=== PATIENT | male | born 1975 | race Caucasian/White ===

== ENCOUNTER → 2020-02-18 15:47 | Outpatient (CLI) | payer MEDICAID, SELFPAY ==
[2020-02-18 16:13] LABS: Basophils # 0.1 K/mm3 (0-0.2); Basophils % 0.8 % (0.1-2.0); Eosinophils # 0.1 K/mm3 (0.0-0.4); Eosinophils % 1.6 % (0.1-12.0); Hematocrit 50.1 % (42.0-52.0); Hemoglobin 16.8 g/dL (14.1-18.0); Lymphocytes # 2.2 K/mm3 (0.7-4.5); Mean Corpuscular HGB Conc 33.5 g/dL (31.8-35.4); Mean Corpuscular Hemoglobin 30.7 pg (27.0-31.2); Mean Corpuscular Volume 91.7 fl (80-94); Mean Platelet Volume 7.5 fl (7.4-10.4); Monocytes # 0.5 K/mm3 (0.1-1.0); Monocytes % 7.2 % (1.7-9.3); Neutrophils # 4.5 K/mm3 (1.8-7.8); Neutrophils % 61.3 % (37.0-80.0); Platelet Count 329 K/mm3 (142-424); Red Blood Count 5.46 M/mm3 (4.60-6.20); Red Cell Distribution Width 13.5 % (11.5-17.5); White Blood Count 7.4 K/mm3 (4.8-10.8)
[2020-02-18 16:27] LABS: Alanine Aminotransferase 23 U/L (12-78); Albumin Level 4.5 g/dl (3.5-5.0); Albumin/Globulin Ratio 1.4 (1.1-1.8); Alkaline Phosphatase 105 U/L (38-126); Anion Gap 15.7 mEq/L (5-15); Aspartate Amino Transferase 37 U/L (17-59); Bilirubin,Total 0.4 mg/dl (0.2-1.3); Blood Urea Nitrogen 11 mg/dl (9-20); Calcium 9.5 mg/dl (8.4-10.2); Carbon Dioxide 23 mmol/L (22.0-30.0); Chloride 106 mmol/L (98-107); Chol/HDL Ratio 6.8 (1-3.5); Cholesterol 197 mg/dl (140-200); Estimated Glomerular Filt Rate 104 ml/min (>60); GFR (African American) 126 ML/MIN (>60); Globulin 3.3 g/dL (1.3-3.2); Glucose 112 mg/dl (74-100); HDL Cholesterol 29 mg/dl (40-60); Potassium 4.7 mmoL/L (3.5-5.1); Sodium 140 mmol/L (136-145); Total Protein,Serum 7.8 g/dl (6.3-8.2); Triglycerides 216 mg/dl (30-150); VLDL Cholesterol 43 mg/dL (0-40)
[2020-02-18 16:37] LABS: Direct LDL Cholesterol 131.27 mg/dL (100-129)
[2020-02-18 16:44] LABS: T4 (Thyroxine) 9.8 ug/dl (5.53-11.0)
[2020-02-18 16:58] LABS: Thyroid Stimulating Hormone 2.05 uIU/mL (0.465-4.68)
== END ==
PROVIDERS: Visit Provider Nurse Practitioner Family
DX: Z00.00 Encounter for general adult medical examination without abnormal findings (principal); R07.89 Other chest pain; S46.912A Strain of unspecified muscle, fascia and tendon at shoulder and upper arm level, left arm, initial encounter; E78.5 Hyperlipidemia, unspecified; Z79.899 Other long term (current) drug therapy
CPT/HCPCS: 80053; 80061; 84436; 84443; 85025

== ENCOUNTER → 2020-03-09 09:45 | Outpatient (CLI) | payer MEDICAID, SELFPAY ==
--- NOTE | 2020-03-09 | CA_ITS ---
APPROVED REPORT Exam: Pharmacologic Technologist: Deidra Cleaning Ht: 6 ft 3 in Wt: 292 lbs BSA: 2.58 m2 HR: 52 bpm BP: 115/74 mmHg Indications: Chest pain Medical History Medications: Aspirin,,,,, Atorvastatin,,,,, Stress Test Details Test: LEXISCAN HR Resting HR: 60 bpm Max Heart Rate (APMHR): 174 bpm Max HR Achieved: 106 bpm Target HR (85% APMHR): 147 bpm % of APMHR: 60 Recovery HR: 67 bpm BP Resting BP: 115.0/74.0 mmHg Max BP: 141.0/72.0 mmHg Recovery BP: 122.0/71.0 mmHg ECG Clinical Exercise duration: 04:04 min Highest Stage Achieved: Exercise capacity: 1.0 METs Stress ECG Conclusion Resting EKG: Sinus bradycardia, otherwise normal. Symptoms: Brief shortness of air, malaise, mild nausea. No chest pain. Arrhythmias/Ectopy: Occasional PVC and PAC ST-T Changes: No significant changes. Conclusion: Unremarkable Lexiscan stress. Myoview images reported separately. Test Summary RECOVERY 03:33 . . 75 . 122/ 71 . . REST 04:22 . . 60 . 115/ 74 . . Stage 1 . . . . . . . Myoview Injected Stage 1 01:00 . . 101 . . . . Stage 2 01:00 . . 92 . 137/ 73 . . Stage 3 01:00 . . 83 . 128/ 77 . . Stage 4 01:00 . . 82 . . . . Stage 4 01:04 . . 82 . 141/ 72 . Stop exercise at 04:04 RECOVERY 01:00 . . 74 . 131/ 71 . . RECOVERY 02:00 . . 87 . 131/ 71 . . RECOVERY 03:00 . . 76 . 131/ 71 . . RECOVERY 03:33 . . 75 . 122/ 71 . . Electronically signed by : Sanford Link, 03/10/2020 05:37:24
--- NOTE | 2020-03-09 09:46 | CA_ITS ---
APPROVED REPORT EXAM: Comprehensive 2D, Doppler, and color-flow Echocardiogram Jailer/Training Officer: Xiomara Zafar RDCS Ht: 6 ft 3 in Wt: 292lbs BSA: 2.58 BP: 133/79 mmHg Indications: CP SMOKER HTN HLP SALINAS 2D Dimensions LVOT 2.14 cm (M/F) 1.5-2.5 M-Mode Dimensions RVDd 2.05 cm (0.9-2.6) LA Diam 3.27 cm (1.9-4.0) LVDd 5.98 cm (3.5-5.7) Ao Diam 3.39 cm (2.0-3.7) LVDs 4.10 cm (3.5-5.7) IVSd 0.88 cm (0.6-1.1) PWd 0.84 cm (0.6-1.1) EF (Teich) 58.50% FS 31.40% EDV (Teich) 178.60 mL ESV (Teich) 74.20 mL LV Diastology E Decel Time 193.00 (160-240 msec) E/A Ratio 1.5 MED E' 8.30 (< 7 cm/sec) E'/MED E' Ratio 10.20 (>14) LAT E' 13.60 (<10 cm/sec) E/LAT E' Ratio 6.23 (>14) Mitral Valve MV E Max Jose. 85.00 (40-130 cm/s) MV A Velocity 57.00 (40-130 cm/s) E/A Ratio 1.48 MV Decel. Time 193.00 (160-240 ms) MV PHT 57.00 ms Left Ventricle Left atrium is mildly enlarged, left ventricle is normal size, mild concentric left ventricular hypertrophy, visually estimated ejection fraction 50%, there is mild apical wall hypokinesis. Diastolic parameters are inconclusive. Right Ventricle Right atrium is normal size, right ventricle is mildly enlarged with normal contractility. Aortic Valve Aortic valve is minimally thickened and fibrosed, there is no aortic stenosis or aortic insufficiency. Mitral Valve Mitral valve is grossly normal, there is mild mitral regurgitation. Tricuspid Valve Tricuspid valve is grossly normal, there is mild tricuspid regurgitation, tricuspid regurgitation jet velocity is inadequate for calculation of the right ventricular systolic pressure. Pulmonic Valve Pulmonic valve is poorly visualized. Great Vessels Aortic root is normal size. Pericardium No significant pericardial effusion noted. Conclusion 1. Mildly enlarged left atrium, normal left ventricular size, mild concentric left ventricular hypertrophy, visually estimated ejection fraction 50% with segmental wall motion abnormality described above, diastolic parameters are inconclusive. 2. Mildly enlarged right ventricle with normal contractility. 3. Mild mitral and tricuspid regurgitation. 4. No significant pericardial effusion noted. Electronically signed by : Sanford Link, 03/10/2020 06:31:23
--- NOTE | 2020-03-09 10:10 | NM_ITS ---
APPROVED REPORT Exam: Nuclear Stress Test Indication: chest pain Patient Location: Outpatient Stress Tech: Deidra Cleaning ID Tech:Geni Peters ILIANAKait RT(R)(N) Ht: 6 ft 3 in Wt: 280 lbs HR: 52 bpm BP: 115/74 mmHg BSA: 2.53 m2 BMI: 34.9 History: chest pain Procedure: Patient received a 0.4 mg of intravenous Lexiscan, resting heart rate 52 bpm, resting blood pressure 115/74 mmHg, with Lexiscan maximum heart rate achived was 105 bpm which is Less than 85 % of the maximum predicted heart rate and blood pressure was 137/73 mmHg. With Lexiscan, patient denied any complaint of chest pain. Electrocardiogram Resting electrocardiogram showed is sinus rhythm nonspecific ST-T changes, with Lexiscan there is less than 1.[address] segment depression noted from the baseline EKG. The EKG portion of the Lexiscan Myoview is nondiagnostic. Cardiac Stress and Resting SPECT Images: Cardiac Stress and Resting SPECT images were obtained using technetium 99m Myoview 32.0 mCi stress and 10.81 mCi at rest. Gated SPECT for analysis of segmental wall motion and calculation of the ejection fraction also done. Cardiac stress and resting SPECT images show mild decrease tracer activity in the apex which improves on the resting images suggestive of reversible ischemia, computer derived ejection fraction is 48% with mild apical hypokinesis, right ventricle is mildly enlarged with normal contractility. Conclusion: 1. The EKG portion of the Lexiscan Myoview is nondiagnostic. 2. Scintigraphic evidence of mild reversible ischemia involving the apex, computer derived ejection fraction 48% with mild apical hypokinesis, right ventricle is mildly enlarged with normal contractility. 3. Abnormal Lexiscan Myoview study. Electronically signed by : Sanford Link, 03/10/2020 05:59:35
--- NOTE | 2020-03-09 12:43 | HMH.ITSHM ---
Current Home Medications as stated by this patient Jairo Aiken or commercial representative. []ASA ATORVASTATIN
== END ==
PROVIDERS: PCP Nurse Practitioner Family; Visit Provider Nurse Practitioner Family
DX: R07.89 Other chest pain (principal); R06.00 Dyspnea, unspecified; R94.31 Abnormal electrocardiogram [ECG] [EKG]; E78.5 Hyperlipidemia, unspecified; K21.9 Gastro-esophageal reflux disease without esophagitis; R20.0 Anesthesia of skin; F17.200 Nicotine dependence, unspecified, uncomplicated
CPT/HCPCS: 78452; 93017; 93306; A9502; J2785

== ENCOUNTER → 2020-03-22 09:55 | Outpatient (CLI) | payer MEDICAID, SELFPAY ==
[2020-03-22 10:37] LABS: Basophils # 0.1 K/mm3 (0-0.2); Basophils % 0.7 % (0.1-2.0); Eosinophils # 0.1 K/mm3 (0.0-0.4); Eosinophils % 1.6 % (0.1-12.0); Hemoglobin 16.3 g/dL (14.1-18.0); Lymphocytes # 2.2 K/mm3 (0.7-4.5); Mean Corpuscular HGB Conc 34.7 g/dL (31.8-35.4); Mean Corpuscular Hemoglobin 30.7 pg (27.0-31.2); Mean Corpuscular Volume 88.5 fl (80-94); Mean Platelet Volume 7.2 fl (7.4-10.4); Monocytes # 0.4 K/mm3 (0.1-1.0); Monocytes % 6.4 % (1.7-9.3); Neutrophils % 58.4 % (37.0-80.0); Platelet Count 310 K/mm3 (142-424); Red Blood Count 5.32 M/mm3 (4.60-6.20); Red Cell Distribution Width 13.9 % (11.5-17.5); White Blood Count 6.8 K/mm3 (4.8-10.8)
[2020-03-22 11:47] LABS: Anion Gap 13.5 mEq/L (5-15); Blood Urea Nitrogen 12 mg/dl (9-20); Calcium 9.2 mg/dl (8.4-10.2); Carbon Dioxide 25 mmol/L (22.0-30.0); Chloride 106 mmol/L (98-107); Estimated Glomerular Filt Rate 91 ml/min (>60); GFR (African American) 110 ML/MIN (>60); Glucose 116 mg/dl (74-100); Potassium 4.5 mmoL/L (3.5-5.1); Sodium 140 mmol/L (136-145)
[2020-03-22 14:28] LABS: Coronavirus 19 IgG Antibody Negative (Negative); Coronavirus 19 IgM Antibody Negative (Negative)
== END ==
PROVIDERS: PCP Nurse Practitioner Family; Visit Provider Nurse Practitioner Family
DX: Z01.818 Encounter for other preprocedural examination (principal); G47.30 Sleep apnea, unspecified; R40.0 Somnolence; R06.83 Snoring; G47.33 Obstructive sleep apnea (adult) (pediatric)
CPT/HCPCS: 36415; 80048; 85025; 86328; 95810

== ENCOUNTER 2020-03-24 08:16 | Day surgery (SDC) | payer MEDICAID, SELFPAY ==
[2020-03-24] VITALS (15 sets, daily range): BP systolic 122–177; BP diastolic 72–102; PULSE 54–88; RESP 12–20; TEMP 36.4–36.7; O2SAT 94–100; BMI 36.3
--- NOTE | 2020-03-24 07:24 | IR_ITS ---
APPROVED REPORT Patient Location: Outpatient PROCEDURES Left heart catheterization Left ventriculogram Selective coronary angiogram Drug-eluting stent deployment to the proximal mid LAD in a contiguous manner INDICATION Coronary artery disease, Reduced ejection fraction with apical ischemia, abnormal Myoview Informed consent was obtained prior to the procedure. COMPLICATIONS NONE Estimated Blood Loss: LESS THAN 10 ML TECHNIQUE One percent lidocaine used to anesthetize the right anterior aspect of the wrist. The right radial artery was accessed via the Seldinger technique. A 6 Vietnamese sheath was placed in the right radial artery. 2.5 mg of verapamil, 800 mcg of nitroglycerin, 1mg Lidocaine and 5000 U Heparin were given through the arterial sheath. The trap catheter was also used to perform left heart catheterization, left ventriculogram and selective coronary angiogram. At the end of the procedure therapeutic heparin was administered giving a therapeutic ACT. And I Amparo left guide catheter was placed in the left main artery and a Choice PT extra-support wire was placed distally. A 3.5 x 38 mm resolute armando stent was deployed at 18 myriam reducing the stenosis. A 3.5 x 12 mm noncompliant balloon was then placed in the distal aspect of the stent and dilated at 24 myriam to provide better stent apposition. At the end of the procedure there is excellent stent apposition however there was poststenotic dilatation distal to the treated lesion and the stent was not further distended due to the positive compliance and anticipated recoil of the poststenotic dilatation. After achieving excellent angiographic results the apparatus was removed the sheath was removed good hemostasis was achieved using TR banding patient was transferred to the postop holding area in stable condition ANGIOGRAPHIC RESULTS The left main artery Normal The left anterior descending artery Has proximal 10% stenosis followed by a concentric 80% stenosis in the mid segment. Poststenotic dilatation is present distal to the stenosis. The circumflex artery Is a nondominant yet still large vessel with an ostial 20% stenosis and proximal 20% stenosis The right coronary artery Is a dominant vessel and has a proximal 30 to 40% concentric stenosis followed by 30% stenosis in the posterior descending artery The SUTTON ventriculogram reveals Normal 65% The left ventricular end-diastolic pressure 10 mmHg IMPRESSION Severe stenosis involving the mid LAD Successful stenting of the proximal through mid LAD with 1 drug-eluting stent reducing the stenosis to 0% Mild to moderate disease in the proximal nondominant yet large circumflex artery Moderate disease in the proximal dominant right coronary artery and proximal posterior descending artery Normal ejection fraction Normal left ventricular end-diastolic pressure PLAN 1. Dual antiplatelet therapy 2. Immediate cessation and avoidance of tobacco products 3. LDL less than 55 4. Cardiac rehabilitation 5. Add bisoprolol 5 mg daily combined with Altace 2.5 daily 6. Aggressive risk factor modification Electronically signed by : Ángel Goldberg, 03/24/2020 11:31:16
[2020-03-24 11:34] LABS: CATHL Activated Clotting Time 275 SEC (74-125)
--- NOTE | 2020-03-24 13:40 | HMH.PHACLD ---
Jairo Aiken has received discharge medication counseling on the following medications: PATIENT IS CURRENTLY ATORVASTIN 20 MG HS AND ASPIRIN EC 81 MG DAILY. MD ADDING BRILINTA 90 MG BID, ALTACE 2.5 MG DAILY, AND BISOPROLOL 5 MG DAILY.
== END 2020-03-24 14:35 ==
LOC: CATHLAB 08:17
PROVIDERS: PCP Nurse Practitioner Family; Visit Provider Internal Medicine
DX: R93.1 Abnormal findings on diagnostic imaging of heart and coronary circulation (principal); E78.2 Mixed hyperlipidemia; I42.9 Cardiomyopathy, unspecified; K21.9 Gastro-esophageal reflux disease without esophagitis; R06.00 Dyspnea, unspecified; R94.39 Abnormal result of other cardiovascular function study; I25.118 Atherosclerotic heart disease of native coronary artery with other forms of angina pectoris; Z72.0 Tobacco use; E78.5 Hyperlipidemia, unspecified
CPT/HCPCS: 85347; 92928; 93458; 99152; C1725; C1769; C1876; C9600; J1644; Q9967

== ENCOUNTER 2020-04-20 14:08 | Outpatient (RCR) | payer MEDICAID, SELFPAY | END 2020-07-07 13:54 | disposition home or self-care (01) | LOC: PT 14:08 | PROVIDERS: Visit Provider Nurse Practitioner Family | DX: I25.10 Atherosclerotic heart disease of native coronary artery without angina pectoris (principal); R06.00 Dyspnea, unspecified | CPT/HCPCS: 93798 ==

== ENCOUNTER 2020-08-15 19:50 | Observation (INO) | payer MEDICAID, SELFPAY ==
[2020-08-15] VITALS (10 sets, daily range): BP systolic 107–148; BP diastolic 47–90; PULSE 50–76; RESP 16–22; TEMP 36.5–37; O2SAT 95–98; BMI 34.9; BMI 36.9
--- NOTE | 2020-08-15 19:52 | XR_ITS ---
PROCEDURE: XR CHEST 2V CLINICAL HISTORY: chest pain w/ dsypnea COMPARISON: No exams were available for comparison FINDINGS: The cardiomediastinal silhouette and pulmonary vascularity are within normal limits. Small nodular opacity right midlung overlying the 4th rib anteriorly and may be due to summation artifact from overlying vessels. Follow-up may confirm and to exclude developing nodule.. Degenerative changes thoracic spine with increased density in the left paraspinal region at T8-T9 and may be due to overlying osteophyte. IMPRESSION: No acute finding. Possible small right upper lobe nodule versus summation density. Follow-up may confirm stability. Dictated by: Schuyler Becker MD 08/16/2020 05:36 Schuyler Becker MD in [facility] 08/16/2020 05:36
--- NOTE | 2020-08-15 20:00 | ECG_ITS ---
APPROVED REPORT Exam: Resting ECG HR:63 bpm ECG Measurements Heart Rate 63 AXES KS 148 P 15 QRSd 82 QRS 25 QT 402 T 29 QTc 411 Conclusion Normal sinus rhythm Normal ECG Electronically signed by : Edgar Joe, 08/16/2020 06:34:04
--- NOTE | 2020-08-15 20:04 | HMH.EDGENADL ---
ED Disposition Clinical Impression: Chest pain Qualifiers: Chest pain type: unspecified Qualified Code(s): R07.9 - Chest pain, unspecified Disposition: Admitted as Observation Condition on Discharge: Good Referrals: Provider,Referral, [Referring] - - Critical Care Critical Care Time: No Attestation: On 08/15/20, the high probability of a clinically significant, sudden or life threatening deterioration of the following system(s) required my full and direct attention, intervention and personal management. The time I documented below is in addition to time spent performing reported procedures but includes the following listed in this critical care notation. Medical Decision Making - Medical Records Medical records reviewed: Yes: I reviewed the patient's medical records. MR Comment: Reviewed cardiac cath report from March 2020, see below - Paul Inquiry Pt receiving controlled substance: No Vital Signs: 08/15/20 19:50 Temperature 98.6 F Temperature Source Oral Pulse Rate [Apical] 60 Respiratory Rate 22 Blood Pressure [Right Arm] 148/83 H Blood Pressure Mean [Right Arm] 104 Blood Pressure Source [Right Arm] Automatic Cuff Blood Pressure Position [Right Arm] Supine 02 Sat by Pulse Oximetry 98 Oxygen Delivery Method Room Air - Lab Data Lab Results 08/15/20 19:55: WBC 9.9, RBC 5.11, Hgb 15.0, Hct 45.3, MCV 88.6, MCH 29.4, MCHC 33.1, RDW 13.2, Plt Count 297, MPV 6.9 L, Neut % (Auto) 54.7, Lymph % (Auto) 36.2, Ceiba % (Auto) 6.5, Eos % (Auto) 1.8, Baso % (Auto) 0.8, Neut # (Auto) 5.4, Lymph # (Auto) 3.6, Ceiba # (Auto) 0.7, Eos # (Auto) 0.2, Baso # (Auto) 0.1 08/15/20 19:55: Sodium 140, Potassium 4.3, Chloride 109 H, Carbon Dioxide 22, Anion Gap 13.3, BUN 16, Creatinine 0.80, Estimated Creat Clear 207, Estimated GFR 104, Est GFR ( Amer) 126, Glucose 105 H, Calcium 9.5, Troponin I < 0.01 Result diagrams: 08/15/20 19:55 08/15/20 19:55 Orders (Tests/Meds): ORDERS Category Date Time Status CXR 2 view (NOT portable) [XR chest 2V] Stat Exams 08/15/20 19:52 Taken Troponin I Q3H Lab 08/15/20 23:00 Ordered Troponin I Q3H Lab 08/16/20 02:00 Ordered - Radiology Data #1 Image(s): Chest Image Reviewed: Yes I reviewed the patient's radiology image Preliminary Findings: Normal/NAD - ECG Data Tracing #1 EKG interpreted by Khai Fletcher MD: Rhythm: sinus Rate: 63 [place]: normal Ectopy: none Conduction: normal ST Segment Changes: none T Wave Changes: none Q Waves: none No evidence of acute ischemia or injury Normal electrocardiogram - Physician Consults Physician Consulted: Ashlyn Time: 20:43 Reason -: Cardiology Eval/Care Comment/Response: Recommends admission Additional Consult: Fransisco Time: 20:55 Reason -: Admission Comment/Response: Agrees to admit the patient to the hospital. We discussed the patient's clinical information, including history, exam, laboratory and radiology results and ED course. Per hospital procedure, I will write temporary bridge inpatient orders on the patient. - TJ Score for Non-Stemi Age of Patient: 40-49 years old Heart Rate: 50-69 bpm Systolic Blood Pressure: 140-159 mmHg Serum Creatinine: 0.80-1.19 mg/dl CHF Killip Class: I-No CHF Other Risk Factors: None Non-Stemi Risk Score: 59 Medical Decision Narrative: PROCEDURES Left heart catheterization Left ventriculogram Selective coronary angiogram Drug-eluting stent deployment to the proximal mid LAD in a contiguous manner INDICATION Coronary artery disease, Reduced ejection fraction with apical ischemia, abnormal Myoview Informed consent was obtained prior to the procedure. COMPLICATIONS NONE Estimated Blood Loss: LESS THAN 10 ML TECHNIQUE One percent lidocaine used to anesthetize the right anterior aspect of the wrist. The right radial artery was accessed via the Seldinger technique. A 6 Maori sheath was placed in the right radial artery. 2.5 mg of verapa
[2020-08-15 20:13] LABS: Chloride 109 mmol/L (98-107); Potassium 4.3 mmoL/L (3.5-5.1); Sodium 140 mmol/L (136-145)
[2020-08-15 20:15] LABS: Basophils # 0.1 K/mm3 (0-0.2); Basophils % 0.8 % (0.1-2.0); Eosinophils # 0.2 K/mm3 (0.0-0.4); Eosinophils % 1.8 % (0.1-12.0); Hematocrit 45.3 % (42.0-52.0); Lymphocytes # 3.6 K/mm3 (0.7-4.5); Lymphocytes % 36.2 % (10-50); Mean Corpuscular HGB Conc 33.1 g/dL (31.8-35.4); Mean Corpuscular Hemoglobin 29.4 pg (27.0-31.2); Mean Corpuscular Volume 88.6 fl (80-94); Mean Platelet Volume 6.9 fl (7.4-10.4); Monocytes # 0.7 K/mm3 (0.1-1.0); Monocytes % 6.5 % (1.7-9.3); Neutrophils # 5.4 K/mm3 (1.8-7.8); Neutrophils % 54.7 % (37.0-80.0); Platelet Count 297 K/mm3 (142-424); Red Blood Count 5.11 M/mm3 (4.60-6.20); Red Cell Distribution Width 13.2 % (11.5-17.5); White Blood Count 9.9 K/mm3 (4.8-10.8)
[2020-08-15 20:16] LABS: Anion Gap 13.3 mEq/L (5-15); Blood Urea Nitrogen 16 mg/dl (9-20); Calcium 9.5 mg/dl (8.4-10.2); Carbon Dioxide 22 mmol/L (22.0-30.0); Creatinine Clearance Estimated 207 mL/min (50-200); Estimated Glomerular Filt Rate 104 ml/min (>60); GFR (African American) 126 ML/MIN (>60); Glucose 105 mg/dl (74-100)
[2020-08-15 20:31] LABS: Troponin I < 0.01 ng/ml (0.00-0.034)
--- NOTE | 2020-08-15 20:40 | PC.NURSE ---
Sara Goldberg at this time.
--- NOTE | 2020-08-15 20:41 | PC.NURSE ---
Justine speaking with Ashlyn at this time
[2020-08-15 21:03] LABS: Adenovirus,PCR Not Detected (NotDetected); Bordetella Pertussis Not Detected (NotDetected); Chlamydophila Pneumoniae, PCR Not Detected (NotDetected); Coronavirus 19, PCR Not Detected (NotDetected); Coronavirus 229E Not Detected (NotDetected); Coronavirus NL63 Not Detected (NotDetected); Coronavirus OC43 Not Detected (NotDetected); Coronovirus HKU1,PCR Not Detected (NotDetected); Human Metapneumovirus Not Detected (NotDetected); Influenza A, PCR Not Detected (NotDetected); Influenza AH1, 2009 Not Detected (NotDetected); Influenza AH1, PCR Not Detected (NotDetected); Influenza AH3,PCR Not Detected (NotDetected); Influenza B, PCR Not Detected (NotDetected); Mycoplasma Pneumoniae, PCR Not Detected (NotDetected); Parainfluenza 1, PCR Not Detected (NotDetected); Parainfluenza 2, PCR Not Detected (NotDetected); Parainfluenza 3, PCR Not Detected (NotDetected); Parainfluenza 4, PCR Not Detected (NotDetected); Respiratory Syncytial Virus Not Detected (NotDetected); Rhinovirus/Enterovirus Not Detected (NotDetected)
--- NOTE | 2020-08-15 23:10 | PC.NURSE ---
s/w Chantel and lab to check on covid results. Was told it should resulted in 5 min
--- NOTE | 2020-08-15 23:21 | PC.NURSE ---
Called report to Filomena Turk RN
[2020-08-15 23:31] LABS: Troponin I < 0.01 ng/ml (0.00-0.034)
--- NOTE | 2020-08-15 23:32 | PC.NURSE ---
PT ARRIVED TO FLOOR VIA W/C FROM ED W/STAFF At 2330
[2020-08-16] VITALS (16 sets, daily range): BP systolic 119–156; BP diastolic 42–80; PULSE 46–63; RESP 14–18; TEMP 36.4–36.6; O2SAT 93–99; BMI 36.8
--- NOTE | 2020-08-16 | IR_ITS ---
APPROVED REPORT Patient Location: Inpatient Tavern Operator: PABLO Chiu RT (R) PROCEDURES Left heart catheterization Left ventriculogram Selective coronary angiogram INDICATION Known coronary disease, Unstable angina Informed consent was obtained prior to the procedure. COMPLICATIONS NONE Estimated Blood Loss: LESS THAN 10 ML TECHNIQUE One percent lidocaine used to anesthetize the right anterior aspect of the wrist. The right radial artery was accessed via the Seldinger technique. A 6 Maori sheath was placed in the right radial artery. 2.5 mg of verapamil, 800 mcg of nitroglycerin, 1mg Lidocaine and 5000 U Heparin were given through the arterial sheath. The trap catheter was also used to perform left heart catheterization, left ventriculogram and selective coronary angiogram. At the end of the procedure the sheath was removed good hemostasis was achieved using Traclet band, patient was transferred to the postop holding area in stable condition. ANGIOGRAPHIC RESULTS The left main artery Normal The left anterior descending artery Has a stent in the proximal through mid segment which is widely patent free of in-stent restenosis with excellent proximal distal transitioning. The remaining vessel has mild 10% luminal irregularities. Both diagonal arteries are widely patent with excellent SANDRA-3 flow The circumflex artery Is a nondominant vessel with proximal and mid vessel 20 to 30% stenoses The right coronary artery Is a dominant vessel and has a proximal concentric 40% smooth stenosis The SUTTON ventriculogram reveals Normal 65% The left ventricular end-diastolic pressure 10 mmHg IMPRESSION Widely patent coronary arteries as described above Normal ejection fraction Normal left ventricular end-diastolic pressure PLAN 1. Continue medical management Electronically signed by : Ángel Goldberg, 08/16/2020 12:00:41
[2020-08-16 02:32] LABS: Troponin I < 0.01 ng/ml (0.00-0.034)
--- NOTE | 2020-08-16 04:04 | PC.NURSE ---
A&OX4. PT TOLERATING RA WELL. PT HAS HAD NO C/O CHEST PAIN OR SOA SINCE ARRIVAL TO FLOOR. PT HAD SNACK AND HAS BEEN ASLEEP SINCE ADMISSION. NSR ON TELE. VSS WILL CONTINUE TO MONITOR.
--- NOTE | 2020-08-16 06:54 | P.CONPHA_ITS ---
[facility] Pharmacy VTE Monitoring - Patient Demographics Admission date: 08/15/20 Report Date: 08/16/20 Time: 06:54 Allergies/Adverse Reactions: Patient Allergies No Known Allergies Allergy (Verified 06/30/20 14:24) Height: 1.91 m Weight: 134.32 kg Patient Problems: Current Active Problems Chest pain (Acute) - VTE Risk Labs: VTE Related Lab Results Hgb 15.0 g/dL (14.1-18.0) 08/15/20 19:55 Hct 45.3 % (42.0-52.0) 08/15/20 19:55 Plt Count 297 K/mm3 (142-424) 08/15/20 19:55 BUN 16 mg/dl (9-20) 08/15/20 19:55 Creatinine 0.80 mg/dl (0.66-1.25) 08/15/20 19:55 Estimated Creat Clear 207 mL/min (50-200) 08/15/20 19:55 - Prophylaxis VTE Prophylaxis Ordered?: Yes Types of VTE Prophylaxis: TEDS Knee High Location of Applied Device: Bilateral Lower Extremeties
--- NOTE | 2020-08-16 07:22 | HMH.PHAINT ---
MEDICATION RECONCILIATION COMPLETED ON PATIENT USING EXTERNAL FILL HISTORY FROM PHARMACY. -HINA WILL, JUAN LUISD
--- NOTE | 2020-08-16 07:33 | HMH.CNCARD ---
History of Present Illness Consult date: 08/16/20 Requesting physician: Khai Fletcher Consult reason: chest pain Chief complaint: Chest pain History of present illness: 45-year-old male admitted to [facility] with chest discomfort. Patient states 2 days prior to presenting to the emergency room, he started developing mid sternal chest discomfort with radiation to arms bilaterally. Patient states he did become short short of breath during these episodes. Patient describes the pain as sharp and stabbing in the chest at times. States these episodes lasted just only for a few seconds and resolved with rest. Patient states when he presented to the emergency room, the sharp pains had intense. States he was given aspirin, and this seemed to relieve the chest discomfort. Patient states he has been lifting over 150 pounds at work. Patient states he feels that he has pulled a muscle in his chest. Patient does complain of shortness of breath, patient states this is mostly due to his smoking. Patient denies chest pain, pressure or tightness during this assessment this morning. Patient denies shortness of breath. No swelling noted of the lower extremities. Patient does complain of dizziness with position change at times. Patient denies palpitations. Patient does have history of coronary artery disease. Patient did undergo a left heart catheterization and March 2020 which revealed severe stenosis involving the mid LAD, successful stenting of the proximal through mid LAD with 1 drug-eluting stent. Mild to moderate disease with proximal nondominant yet large circumflex artery. Moderate disease of the proximal dominant RCA and proximal posterior descending artery. Echocardiogram was also performed which revealed EF 50% with segmental wall motion abnormality and mild MR and TR noted. Patient does have history of OSMAR which is treated with CPAP. History of hypertension and hyperlipidemia. Patient does smoke 1 pack/day. Denies alcohol or recreational drugs. Initial EKG was performed which revealed sinus rhythm with a heart rate is 63 bpm with no ischemic changes noted. Chest x-ray revealed no acute findings. Serial troponins noted as negative. Discussed plan of care with Dr. Goldberg. Obtain echocardiogram to assess LV function and valve status. Due to patient's atypical chest pain and coronary artery disease, will plan left heart catheterization today. Discussed risk and benefits of undergoing left heart catheterization with right radial access. Patient verbalized understanding and is agreeable to procedure. Pending on the results of the left heart catheterization and echocardiogram, medications and treatment therapy changes may be recommended. We will continue patient on his current medication regimen due to ischemic coronary artery disease and hyperlipidemia. Echo (03/26)Conclusion 1. Mildly enlarged left atrium, normal left ventricular size, mild concentric left ventricular hypertrophy, visually estimated ejection fraction 50% with segmental wall motion abnormality described above, diastolic parameters are inconclusive. 2. Mildly enlarged right ventricle with normal contractility. 3. Mild mitral and tricuspid regurgitation. 4. No significant pericardial effusion noted. [facility] (03/2020)ANGIOGRAPHIC RESULTS The left main artery Normal The left anterior descending artery Has proximal 10% stenosis followed by a concentric 80% stenosis in the mid segment. Poststenotic dilatation is present distal to the stenosis. The circumflex artery Is a nondominant yet still large vessel with an ostial 20% stenosis and proximal 20% stenosis The right coronary artery Is a dominant vessel and has a proximal 30 to 40% concentric stenosis followed by 30% stenosis in the posterior descending artery The SUTTON ventriculogram reveals Normal 65% The left ventricular end-diastolic pressure 10 mmHg IMPRESSION Severe stenosis involving the mid LAD Success
--- NOTE | 2020-08-16 07:35 | CA_ITS ---
APPROVED REPORT EXAM: Comprehensive 2D, Doppler, and color-flow Echocardiogram Grips: Jaimee Bob RT(R) Ht: 6 ft 3 in Wt: 290lbs BSA: 2.57 BP: 132/77 mmHg Indications: CP, CAD, cardiac stent 03/2020, smoker, palpitations, fatigue, SALINAS, obesity, hyperlipidemia, family history HD Echo Enhancing Agent Indication: Endocardial border delineation Agent(s) / Amount(s) Used: Definity 2 cc 2D Dimensions LVOT 2.17 cm (M/F) 1.5-2.5 M-Mode Dimensions RVDd 2.33 cm (0.9-2.6) LA Diam 4.12 cm (1.9-4.0) LVDd 4.95 cm (3.5-5.7) Ao Diam 3.03 cm (2.0-3.7) LVDs 3.86 cm (3.5-5.7) IVSd 0.93 cm (0.6-1.1) PWd 1.05 cm (0.6-1.1) EF (Teich) 44.30% FS 22.00% EDV (Teich) 115.50 mL TAPSE 3.20 (<1.7) ESV (Teich) 64.30 mL LV Diastology E Decel Time 303.00 (160-240 msec) E/A Ratio 1.10 MED E' 12.40 (< 7 cm/sec) E'/MED E' Ratio 7.65 (>14) LAT E' 14.70 (<10 cm/sec) E/LAT E' Ratio 6.46 (>14) Mitral Valve MV A Velocity 86.00 (40-130 cm/s) E/A Ratio 1.10 MV Decel. Time 303.00 (160-240 ms) Left Ventricle Left atrium is mildly enlarged, left ventricle is normal size, visually estimated ejection fraction 55% with no regional wall motion abnormality, Definity contrast was utilized to delineate the endocardial surfaces, there is no left ventricular thrombus seen, diastolic parameters are inconclusive. Right Ventricle Right atrium and right ventricle are normal size and contractility. Aortic Valve Aortic valve is minimally thickened and fibrosed, there is no aortic stenosis or aortic insufficiency. Mitral Valve Mitral valve is grossly normal, there is trace mitral regurgitation. Tricuspid Valve Tricuspid grossly normal, there is trace tricuspid regurgitation, tricuspid regurgitation jet velocity is inadequate for calculation of the right ventricular systolic pressure. Pulmonic Valve Pulmonic valve is poorly visualized. Great Vessels Aortic root is normal size. Pericardium No significant pericardial effusion noted. Conclusion 1. Mildly enlarged left atrium, normal left ventricular size, visually estimated ejection fraction 55% with no regional wall motion abnormality, diastolic parameters are inconclusive. 2. Trace mitral and tricuspid regurgitation. 3. No significant pericardial effusion noted. Electronically signed by : Sanford Link, 08/16/2020 21:28:35
--- NOTE | 2020-08-16 11:30 | PC.NURSE ---
PT OFF FLOOR WITH HEEL PRICKER STAFF [id number]
--- NOTE | 2020-08-16 12:27 | PC.NURSE ---
report received from Dexter Romero RN in chemical laboratory chief.
--- NOTE | 2020-08-16 13:14 | HMH.HPDC ---
General - General Admission date:: 08/15/20 Discharge date: 08/16/20 *Admission Date: 08/15/20 *Chief complaint: chest pain *History of present illness: 45-year-old male presenting to the emergency room, he started developing mid sternal chest discomfort with radiation to arms bilaterally for 2 days. Patient states he did become short short of breath during these episodes. Patient describes the pain as sharp and stabbing in the chest at times. States these episodes lasted just only for a few seconds and resolved with rest. Patient states when he presented to the emergency room, the sharp pains had intense. Pt admitted for cardiac work up. Pt has hx of CAD. [facility] History I have reviewed the patient's past medical history: Yes Medical History: Reports:: Coronary Artery Disease, Gastroesophageal Reflux Disease(GERD), Hyperlipidemia, Hypertension Denies:: Cancer, Diabetes Mellitus Type 1, Diabetes Mellitus Type 2, Internal Pacemaker, MRSA, Seizures *Have you ever received a pneumonia vaccine?: No *Have you received a flu vaccine this season?: No Other Surgeries: Yes: Cardiac Catheterization, Coronary Stent. No: Pacemaker Amputation: No Fractures: No - *Social History Smoking Status: Current every day smoker Tobacco Type: cigarettes # Packs/Day (cigarettes): 1 #Yrs smoked (if former smoker): 30 Alcohol Intake: never Substance Use Type: denies use *Occupational Status:: employed Housing: house Household Members: spouse *Travel in the last 8 weeks: None Family Hx:: Coronary Artery Disease Review of Systems - Review of Systems Review of systems:: pertinent systems reviewed and negative unless documented below - Constitutional Denies body ache(s), Denies fatigue, Denies fever(s) - Eyes Denies change in vision - ENT Denies change in voice, Denies neck pain - *Cardiovascular Reports chest pain, Reports chest pain at rest, Reports chest pain with activity, Reports shortness of breath, Denies fast heart rate - *Respiratory Denies change in phlegm color, Denies cough, Denies shortness of breath with activity - *Gastrointestinal Denies abdominal pain - *Genitourinary Denies urinary frequency - *Musculoskeletal Denies decreased muscle mass, Denies stiffness - Integumentary/Breasts Denies change in hair, Denies rash - *Neurologic Denies abnormal walking, Denies dizziness - Psychiatric Denies lack of enjoyment, Denies panic attacks - Endocrine Denies excessive sweating - Hematologic/Lymphatic Denies enlarged lymph nodes - Allergic/Immunologic Denies itchy eyes Exam Vital signs and Labs for Last 24 Hours: Temp Pulse Resp BP Pulse Ox 97.8 F 51 L 17 140/78 97 08/16/20 08:00 08/16/20 12:50 08/16/20 12:50 08/16/20 12:50 08/16/20 12:50 Laboratory Results - last 24 hr 08/15/20 19:55: WBC 9.9, RBC 5.11, Hgb 15.0, Hct 45.3, MCV 88.6, MCH 29.4, MCHC 33.1, RDW 13.2, Plt Count 297, MPV 6.9 L, Neut % (Auto) 54.7, Lymph % (Auto) 36.2, [place] % (Auto) 6.5, Eos % (Auto) 1.8, Baso % (Auto) 0.8, Neut # (Auto) 5.4, Lymph # (Auto) 3.6, [place] # (Auto) 0.7, Eos # (Auto) 0.2, Baso # (Auto) 0.1 08/15/20 19:55: Sodium 140, Potassium 4.3, Chloride 109 H, Carbon Dioxide 22, Anion Gap 13.3, BUN 16, Creatinine 0.80, Estimated Creat Clear 207, Estimated GFR 104, Est GFR ( Amer) 126, Glucose 105 H, Calcium 9.5, Troponin I < 0.01 08/15/20 21:00: Chlamy pneumoniae PCR Not detected, Adenovirus (PCR) Not detected, B. pertussis DNA (PCR) Not detected, Coronavirus OC43 (PCR) Not detected, Coronavirus HKU1 (PCR) Not detected, Coronavirus 229E (PCR) Not detected, SARS-CoV-2 (PCR) Not detected, Coronavirus NL63 (PCR) Not detected, Human Metapneumovir PCR Not detected, Influenza A (H1) PCR Not detected, Influ A (H1N1/09) PCR Not detected, Influenza A (H3) PCR Not detected, Influenza Type A (PCR) Not detected, Influenza Type B (PCR) Not detected, M. pneumoniae (PCR) Not detected, Parainfluenza 1 (PCR) Not detected, Parainflue
--- NOTE | 2020-08-16 15:13 | PC.NURSE ---
michelle brown rn in lab aide, pt can leave as early as 1500 if tracelet is off.
== END 2020-08-16 16:02 | disposition home or self-care (01) ==
LOC: ER 20:44 → 2ND 21:21
PROVIDERS: Internal Medicine; Admitting Provider Family Medicine; Emergency Provider Emergency Medicine; PCP Nurse Practitioner Family; Visit Provider Family Medicine
DX: I25.110 Atherosclerotic heart disease of native coronary artery with unstable angina pectoris (principal); I10 Essential (primary) hypertension; F17.210 Nicotine dependence, cigarettes, uncomplicated; Z95.5 Presence of coronary angioplasty implant and graft; Z71.6 Tobacco abuse counseling; Z79.82 Long term (current) use of aspirin; Z79.02 Long term (current) use of antithrombotics/antiplatelets; G47.33 Obstructive sleep apnea (adult) (pediatric); I42.9 Cardiomyopathy, unspecified; E78.2 Mixed hyperlipidemia
CPT/HCPCS: 71046; 80048; 84484; 85025; 87581; 87633; 87798; 93005; 93306; 93458; 99152; 99284; C1725; C1760; C1769; G0378; J1644; Q9957; Q9967

== ENCOUNTER → 2020-09-01 09:18 | Outpatient (CLI) | payer MEDICAID, SELFPAY ==
[2020-09-01 10:09] LABS: Alanine Aminotransferase 16 U/L (12-78); Albumin Level 4.2 g/dl (3.5-5.0); Alkaline Phosphatase 99 U/L (38-126); Aspartate Amino Transferase 27 U/L (17-59); Bilirubin,Direct 0.1 mg/dl (0.0-0.4); Bilirubin,Indirect 0.4 mg/dL (0.0-0.9); Bilirubin,Total 0.5 mg/dl (0.2-1.3); Bilirubin,Unconjugated 0.4 mg/dL (0.0-1.1); Chol/HDL Ratio 5.5 (1-3.5); Cholesterol 132 mg/dl (140-200); HDL Cholesterol 24 mg/dl (40-60); Total Protein,Serum 7.3 g/dl (6.3-8.2); Triglycerides 154 mg/dl (30-150); VLDL Cholesterol 31 mg/dL (0-40)
== END ==
PROVIDERS: Visit Provider Urology
DX: E11.9 Type 2 diabetes mellitus without complications (principal); I11.9 Hypertensive heart disease without heart failure
CPT/HCPCS: 36415; 80061; 80076

== ENCOUNTER → 2021-05-31 15:01 | Outpatient (CLI) | payer MEDICAID, SELFPAY ==
--- NOTE | 2021-05-31 15:07 | XR_ITS ---
FINAL REPORT CLINICAL HISTORY: L Foot pain/numbness surgery 2013 FINDINGS: LEFT FOOT Three views demonstrate no acute fracture or dislocation. Sideplate and screws are seen securing the distal tibia. Single screw is seen in the distal fibula. There are mild hypertrophic changes at the first metatarsophalangeal joint. IMPRESSION: Degenerative and postsurgical changes as above. Reviewed, Interpreted and Dictated by Bharath Irwin MD Transcribed by Dorene Smith Authenticated by Bharath Irwin MD on 05/31/2021 04:18:[address] [facility]
--- NOTE | 2021-05-31 15:07 | XR_ITS ---
FINAL REPORT CLINICAL HISTORY: R Wrist pain,,surgery 2014 FINDINGS: RIGHT WRIST Three views demonstrate no acute fracture or dislocation. There is moderate radiocarpal joint space narrowing consistent with osteoarthritis. There is a well-corticated ossific density distal to the ulna, probably due to old trauma. IMPRESSION: Degenerative and chronic appearing findings. Reviewed, Interpreted and Dictated by Bharath Irwin MD Transcribed by Dorene Smith Authenticated by Bharath Irwin MD on 05/31/2021 04:18:20 PM [facility]
== END ==
PROVIDERS: PCP Nurse Practitioner Family; Visit Provider Nurse Practitioner Family
DX: M25.531 Pain in right wrist (principal); R20.8 Other disturbances of skin sensation; M79.672 Pain in left foot
CPT/HCPCS: 73110; 73630

== ENCOUNTER 2021-06-29 11:43 | Outpatient (RCR) | payer MEDICAID, SELFPAY | END 2021-06-29 12:32 | disposition home or self-care (01) | LOC: OT 11:43 | PROVIDERS: Visit Provider Orthopaedic Surgery | DX: G56.03 Carpal tunnel syndrome, bilateral upper limbs (principal) | CPT/HCPCS: 97763 ==

== ENCOUNTER → 2021-07-22 15:42 | Outpatient (CLI) | payer MEDICAID, SELFPAY ==
--- NOTE | 2021-07-22 15:46 | XR_ITS ---
FINAL REPORT CLINICAL HISTORY: left wrist pain with swelling, no known injury FINDINGS: LEFT WRIST Three views demonstrate no acute fracture or dislocation. There are mild and moderate degenerative changes which is worse involving the 1st CMC joint. There are cysts in multiple carpal bones. 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 The soft tissues are unremarkable. IMPRESSION: Mild and moderate degenerative changes, worse involving the 1st CMC joint. 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 Reviewed, Interpreted and Dictated by Ronen Puckett III, MD Transcribed by Ashely Lo Authenticated by Ronen Puckett III, MD on 07/22/2021 04:45:13 PM [facility]
== END ==
PROVIDERS: PCP Nurse Practitioner Family; Visit Provider Nurse Practitioner Family
DX: S69.92XA Unspecified injury of left wrist, hand and finger(s), initial encounter (principal)
CPT/HCPCS: 73110

== ENCOUNTER → 2021-08-11 11:10 | Outpatient (CLI) | payer MEDICAID, SELFPAY ==
--- NOTE | 2021-08-11 | ECG_ITS ---
APPROVED REPORT Exam: Resting ECG HR:53 bpm ECG Measurements Heart Rate 53 AXES NC 161 P 49 QRSd 95 QRS 60 QT 404 T 55 QTc 386 Conclusion SINUS BRADYCARDIA WITH SINUS ARRHYTHMIA BORDERLINE ECG UNCONFIRMED REPORT Electronically signed by : Edgar Joe MD 08/12/2021 14:51:44
--- NOTE | 2021-08-11 11:15 | XR_ITS ---
FINAL REPORT CLINICAL HISTORY: pain FINDINGS: LEFT FOOT Three views were obtained. There is no acute fracture or dislocation. There are mild degenerative changes. There are postoperative changes in the distal tibia and fibula. There are soft tissue calcifications along the medial aspect of the lower leg. IMPRESSION: Mild degenerative change with no acute bony abnormality. Reviewed, Interpreted and Dictated by Ronen Puckett III, MD Transcribed by Ashely Lo Authenticated by Ronen Puckett III, MD on 08/11/2021 12:16:55 PM [facility]
--- NOTE | 2021-08-11 11:15 | XR_ITS ---
FINAL REPORT CLINICAL HISTORY: pre op FINDINGS: Two views of the chest were obtained. The heart size and pulmonary vascularity are within normal limits. The mediastinum is normal. No acute pulmonary abnormality is identified. There is no pneumothorax. The bony thorax is intact. IMPRESSION: No active cardiopulmonary disease. Reviewed, Interpreted and Dictated by Ronen Puckett III, MD Transcribed by Ashely Lo Authenticated by Ronen Puckett III, MD on 08/11/2021 12:16:57 PM [facility]
[2021-08-11 12:11] LABS: Basophils # 0.1 K/mm3 (0-0.2); Basophils % 0.8 % (0.1-2.0); Eosinophils # 0.1 K/mm3 (0.0-0.4); Eosinophils % 1.7 % (0.1-12.0); Hematocrit 44.9 % (42.0-52.0); Hemoglobin 15.2 g/dL (14.1-18.0); Lymphocytes % 31.5 % (10-50); Mean Corpuscular HGB Conc 33.9 g/dL (31.8-35.4); Mean Corpuscular Hemoglobin 29.9 pg (27.0-31.2); Mean Corpuscular Volume 88.2 fl (80-94); Mean Platelet Volume 6.7 fl (7.4-10.4); Monocytes # 0.3 K/mm3 (0.1-1.0); Monocytes % 4.9 % (1.7-9.3); Neutrophils # 3.9 K/mm3 (1.8-7.8); Neutrophils % 61.1 % (37.0-80.0); Platelet Count 271 K/mm3 (142-424); Red Blood Count 5.09 M/mm3 (4.60-6.20); White Blood Count 6.4 K/mm3 (4.8-10.8)
[2021-08-11 13:11] LABS: Alanine Aminotransferase 21 U/L (12-78); Albumin Level 3.9 g/dl (3.5-5.0); Albumin/Globulin Ratio 1.4 (1.1-1.8); Alkaline Phosphatase 88 U/L (38-126); Anion Gap 12.2 mEq/L (5-15); Aspartate Amino Transferase 31 U/L (17-59); Bilirubin,Total 0.4 mg/dl (0.2-1.3); Blood Urea Nitrogen 14 mg/dl (9-20); Calcium 8.7 mg/dl (8.4-10.2); Carbon Dioxide 22 mmol/L (22.0-30.0); Chloride 109 mmol/L (98-107); Estimated Glomerular Filt Rate 90 ml/min (>60); GFR (African American) 109 ML/MIN (>60); Globulin 2.8 g/dL (1.3-3.2); Glucose 123 mg/dl (74-100); Potassium 4.2 mmoL/L (3.5-5.1); Sodium 139 mmol/L (136-145); Total Protein,Serum 6.7 g/dl (6.3-8.2)
== END ==
PROVIDERS: PCP Nurse Practitioner Family; Referring Provider Podiatrist; Visit Provider Orthopaedic Surgery
DX: M79.672 Pain in left foot (principal); M19.032 Primary osteoarthritis, left wrist; M18.12 Unilateral primary osteoarthritis of first carpometacarpal joint, left hand
CPT/HCPCS: 36415; 71046; 73630; 80053; 85025; 93005

== ENCOUNTER → 2021-08-30 12:08 | Outpatient (CLI) | payer MEDICAID, SELFPAY | PROVIDERS: PCP Nurse Practitioner Family; Visit Provider Orthopaedic Surgery | DX: Z01.812 Encounter for preprocedural laboratory examination (principal); Z11.52 Encounter for screening for COVID-19; M19.032 Primary osteoarthritis, left wrist; G56.02 Carpal tunnel syndrome, left upper limb | CPT/HCPCS: C9803; U0003; U0005 ==

== ENCOUNTER 2021-09-01 09:19 | Day surgery (SDC) | payer MEDICAID, SELFPAY ==
[2021-08-29 16:46] VITALS: BMI 35.7
[2021-09-01] VITALS (10 sets, daily range): BP systolic 106–136; BP diastolic 55–83; PULSE 53–68; RESP 16–18; TEMP 36.2–43; O2SAT 92–98
--- NOTE | 2021-09-01 12:04 | HMH.ANESCL ---
[facility] Anesthesia Checklist - Structural Data Admitted From: Home Planned Operative Procedure/s: carpal tunnel Consent for Planned Operative Procedure(s) Verified: Yes - Additional verifications Anesthesia Reactions: No Hx Blood Transfusions: No Blood Transfusion Reaction: No - Airway Assessment C-Spine Mobility Assessed: Yes TMJ Mobility Assessed: Yes Dentition: Poor Dentition - Neurological Assessment Level of Consciousness: Awake, Alert, Appropriate - Anesthesia Plan Anesthesia Risk discussed: Yes Anesthesia Plan: Verified ASA Class: III Anesthesia Type: General [facility] History I have reviewed the patient's past medical history: Yes Medical History: Reports:: Coronary Artery Disease, Gastroesophageal Reflux Disease(GERD), Hyperlipidemia, Hypertension Denies:: Cancer, Diabetes Mellitus Type 1, Diabetes Mellitus Type 2, Internal Pacemaker, MRSA, Seizures *Have you ever received a pneumonia vaccine?: No *Have you received a flu vaccine this season?: No Other Medical History: Denies: Blood Transfusion Reaction Anesthesia experience/problems:: none Laterality Cases: Left: Arthroscopy Knee Other Surgeries: Yes: Cardiac Catheterization, Coronary Stent. No: Pacemaker Amputation: No Fractures: Yes - *Social History Last grade of school completed: High school graduate Smoking Status: Current every day smoker Tobacco Type: cigarettes # Packs/Day (cigarettes): 1 #Yrs smoked (if former smoker): 30 Alcohol Intake: never Substance Use Type: denies use *Occupational Status:: disabled Housing: house Household Members: spouse *Travel in the last 8 weeks: None Family Hx:: Coronary Artery Disease
--- NOTE | 2021-09-01 12:50 | XR_ITS ---
FINAL REPORT CLINICAL HISTORY: STEROID INJECTION IN OR FLUORO TIME-0.25 FINDINGS: Fluoroscopic guidance was provided for the operating services. A single spot film was provided. 25 seconds of fluoroscopy time was utilized. IMPRESSION: 25 seconds of fluoroscopy time. Reviewed, Interpreted and Dictated by Bharath Irwin MD Transcribed by Boni Nassar Authenticated by Bharath Irwin MD on 09/01/2021 02:32:[address] [facility]
--- NOTE | 2021-09-01 12:50 | XR_ITS ---
FINAL REPORT CLINICAL HISTORY: STEROID INJECTION IN OR FLUORO TIME-0.25 FINDINGS: Fluoroscopic guidance was provided for the operating services. A single spot film was provided. 25 seconds of fluoroscopy time was utilized. IMPRESSION: 25 seconds of fluoroscopy time. Reviewed, Interpreted and Dictated by Bharath Irwin MD Transcribed by Boni Nassar Authenticated by Bharath Irwin MD on 09/01/2021 02:31:59 PM [facility]
--- NOTE | 2021-09-01 12:52 | HMH.ANESI ---
[facility] Anesthesia Record Part I Intake, IV Amount: 1,000 Estimated blood loss (mL): 5 Urine output (mL): 0 Blood Pressure: 112/55 SaO2: 92 Pulse Rate: 68 Respiratory Rate: 16 Temperature: 97.8 F Patient is:: Drowsy, Stable Stable to PACU at:: 12:50
--- NOTE | 2021-09-01 15:15 | HMH.ANESII ---
[facility] Anesthesia Record Part II Discharge Time: 13:20 Destination: Surgical Day Care (OP Surgery) PACU nurse assessment reviewed?: Yes Patient Condition:: Good Anesthesia Complications:: None Swallowing reflex intact?: Yes Cyanosis?: No Blood Pressure: 122/61 Pulse Rate: 63 Temperature: 97.3 F Mental Status: Alert & Oriented Pain level:: 0 Nausea and/or vomitting:: None Intake, IV Amount: 0
--- NOTE | 2021-09-01 16:22 | HMH.OPNOTE ---
Date of procedure: 09/01/21 Pre-op Diagnosis:: 1. Chronic pain, left wrist 2. Chronic pain of right wrist 3. Carpal tunnel syndrome of left wrist 4. Osteoarthritis of carpometacarpal (CMC) joint of left thumb 5. Osteoarthritis, right wrist Post-op Diagnosis:: Same Procedure performed:: 1. Open carpal tunnel release, left wrist 2. Steroid injection, CMC joint, left thumb, under fluoroscopy 3. Steroid injection, radiocarpal joint, right wrist, under fluoroscopy Surgeon:: Jeferson Vela MD Telegraphic Typewriter Repairer(s):: Claritza Lindsey PA-C FACILITIES DIRECTOR:: Betito Mckeon Anesthesia: LMA Estimated blood loss (mL): 2 Clinical Note:: Patient is a 46-year-old male with chronic bilateral wrist/hand pain and paresthesias. EMG/NCV studies confirmed bilateral carpal tunnel syndrome. X-rays showed basal joint arthritis of the left thumb and secondary degenerative arthritis of the right wrist. Patient is having significant and disabling symptoms and has failed to respond adequately to conservative management. His carpal tunnel syndrome symptoms are more severe on the left side. Therefore, carpal tunnel release surgery is necessary to relieve symptoms, preserve the remaining fibers of the median nerve, improve function and decrease the pain, paresthesias and weakness and to prevent permanent nerve damage. Patient also wanted to have intra-articular steroid injections to his right radiocarpal joint and left first CMC joint under anesthesia at the same time. Please refer to my office note for full details. Operative findings:: The intraoperative findings showed the left median nerve to be very tightly compressed and hyperemic. The flexor retinaculum was noted to be thick and tight. There was mild synovitis in the carpal tunnel. There was no evidence of any space-occupying lesions within the carpal tunnel. C-arm fluoroscopy was utilized for performing corticosteroid and local anesthetic injections to the left first CMC joint and right radiocarpal joint. Operative note:: On the day of the surgery the patient was met in the preoperative area. Patient was positively identified, and the operative site was marked and initialed by me. A physical examination was performed, and the chart was updated. I have again discussed the procedure, risks, benefits, and alternatives with the patient. The complications discussed include but are not limited to- bleeding, injury to nerves, blood vessels and tendons, infection, wound dehiscence, incomplete relief/continued pain, persistent numbness, palmar hypersensitivity, pillar pain, DVT/PE, complex regional pain syndrome(CRPS), worsening of nerve damage, failure of the condition to improve, incomplete return of function, bowstringing of tendons, weakness of log preparer strength, recurrence, failure of the surgery to accomplish the desired goals, decreased use of the hand, loss of use of the arm, loss of the hand or arm, loss of life. Likely need for further surgery in the future has been discussed. I've indicated to the patient where the proposed incision would be made and also discussed the possibility of extending the incision if needed to accomplish an effective release. Patient asked appropriate questions, and all have been answered by me. Patient wished to proceed with the surgery. Patient understood the risks, agreed to proceed with surgery and no guarantees or assurances were given or implied. I have also discussed the role of local steroid injections for his arthritis. He elected to proceed with intra-articular steroid injection, to the first CMC joint of the left hand and intra-articular steroid injection to the right radiocarpal joint, to be performed under fluoroscopic guidance. I have discussed the pros and cons of local steroid injections; patient expressed full understanding and wished to proceed with the injections. The patient was brought to the operating room and placed supine on the operating table. The left upper extremity was placed over a alesia
== END 2021-09-01 13:21 | disposition home or self-care (01) ==
LOC: OR 09:21
PROVIDERS: PCP Nurse Practitioner Family; Visit Provider Orthopaedic Surgery
PROC: (CPT 64721; principal; 2021-09-01 12:00)
DX: G56.02 Carpal tunnel syndrome, left upper limb (principal); M19.031 Primary osteoarthritis, right wrist; M18.9 Osteoarthritis of first carpometacarpal joint, unspecified; G89.29 Other chronic pain; M25.532 Pain in left wrist; M25.531 Pain in right wrist
CPT/HCPCS: 64721; 20605; 20600; 73100; 76000; 96374; J2405

== ENCOUNTER → 2022-04-24 11:16 | Outpatient (CLI) | payer MEDICAID, SELFPAY ==
[2022-04-24 12:42] LABS: Basophils # 0.1 K/mm3 (0-0.2); Basophils % 0.9 % (0.1-2.0); Eosinophils # 0.2 K/mm3 (0.0-0.4); Eosinophils % 3.1 % (0.1-12.0); Hematocrit 43.3 % (42.0-52.0); Hemoglobin 14.9 g/dL (14.1-18.0); Lymphocytes # 2.2 K/mm3 (0.7-4.5); Lymphocytes % 30.6 % (10-50); Mean Corpuscular HGB Conc 34.4 g/dL (31.8-35.4); Mean Corpuscular Volume 87.3 fl (80-94); Mean Platelet Volume 7.8 fl (7.4-10.4); Monocytes # 0.4 K/mm3 (0.1-1.0); Monocytes % 5.5 % (1.7-9.3); Neutrophils # 4.3 K/mm3 (1.8-7.8); Platelet Count 293 K/mm3 (142-424); Red Blood Count 4.95 M/mm3 (4.60-6.20); White Blood Count 7.2 K/mm3 (4.8-10.8)
[2022-04-24 13:44] LABS: Alanine Aminotransferase 26 U/L (12-78); Albumin Level 4.2 g/dl (3.5-5.0); Alkaline Phosphatase 132 U/L (38-126); Anion Gap 11.4 mEq/L (5-15); Aspartate Amino Transferase 39 U/L (17-59); Bilirubin,Indirect 0.3 mg/dL (0.0-0.9); Bilirubin,Total 0.3 mg/dl (0.2-1.3); Bilirubin,Unconjugated 0.3 mg/dL (0.0-1.1); Blood Urea Nitrogen 13 mg/dl (9-20); Calcium 9.3 mg/dl (8.4-10.2); Carbon Dioxide 25 mmol/L (22.0-30.0); Chloride 107 mmol/L (98-107); Chol/HDL Ratio 5.3 (1-3.5); Cholesterol 126 mg/dl (140-200); Estimated Glomerular Filt Rate 90 ml/min (>60); GFR (African American) 109 ML/MIN (>60); Glucose 99 mg/dl (74-100); HDL Cholesterol 24 mg/dl (40-60); Magnesium 1.9 mg/dl (1.6-2.3); Potassium 4.4 mmoL/L (3.5-5.1); Sodium 139 mmol/L (136-145); Total Protein,Serum 7.2 g/dl (6.3-8.2); Triglycerides 141 mg/dl (30-150); VLDL Cholesterol 28 mg/dL (0-40)
[2022-04-24 14:00] LABS: Direct LDL Cholesterol 69.52 mg/dL (100-129); Free T4 (Free Thyroxine) 1.17 ng/dl (0.78-2.19)
[2022-04-24 14:15] LABS: Thyroid Stimulating Hormone 1.73 uIU/mL (0.465-4.68)
== END ==
PROVIDERS: PCP Nurse Practitioner Family; Visit Provider Nurse Practitioner
DX: I25.118 Atherosclerotic heart disease of native coronary artery with other forms of angina pectoris (principal); I42.9 Cardiomyopathy, unspecified; E78.2 Mixed hyperlipidemia; R94.31 Abnormal electrocardiogram [ECG] [EKG]; F17.200 Nicotine dependence, unspecified, uncomplicated
CPT/HCPCS: 36415; 80048; 80061; 80076; 83735; 84439; 84443; 85025

== ENCOUNTER 2022-05-31 10:00 | Outpatient (RCR) | payer MEDICAID, SELFPAY | END 2022-05-31 10:05 | disposition home or self-care (01) | LOC: OT 10:00 | PROVIDERS: PCP Nurse Practitioner Family; Visit Provider Plastic Surgery Surgery of the Hand | DX: M19.031 Primary osteoarthritis, right wrist (principal) | CPT/HCPCS: 97010; 97014; 97018; 97110; 97140; 97165; 97530; G0283 ==

== ENCOUNTER 2023-05-24 10:50 | Outpatient (CLI) | payer MEDICAID, SELFPAY ==
[2023-05-24 11:13] LABS: Basophils # 0.1 K/mm3 (0-0.2); Basophils % 0.8 % (0.1-2.0); Eosinophils # 0.2 K/mm3 (0.0-0.4); Eosinophils % 2.6 % (0.1-12.0); Hematocrit 45.6 % (42.0-52.0); Hemoglobin 15.8 g/dL (14.1-18.0); Lymphocytes # 2.3 K/mm3 (0.7-4.5); Mean Corpuscular HGB Conc 34.7 g/dL (31.8-35.4); Mean Corpuscular Hemoglobin 31.8 pg (27.0-31.2); Mean Corpuscular Volume 91.9 fl (80-94); Mean Platelet Volume 7.2 fl (7.4-10.4); Monocytes # 0.4 K/mm3 (0.1-1.0); Monocytes % 6.5 % (1.7-9.3); Neutrophils # 3.7 K/mm3 (1.8-7.8); Platelet Count 243 K/mm3 (142-424); Red Blood Count 4.97 M/mm3 (4.60-6.20); Red Cell Distribution Width 13.5 % (11.5-17.5); White Blood Count 6.6 K/mm3 (4.8-10.8)
[2023-05-24 11:35] LABS: Chloride 107 mmol/L (98-107); Sodium 138 mmol/L (136-145)
[2023-05-24 11:36] LABS: Potassium 4.5 mmoL/L (3.5-5.1)
[2023-05-24 11:38] LABS: Alanine Aminotransferase 29 U/L (12-78); Alkaline Phosphatase 88 U/L (38-126); Anion Gap 11.5 mEq/L (5-15); Aspartate Amino Transferase 35 U/L (17-59); Bilirubin,Direct 0.1 mg/dl (0.0-0.4); Bilirubin,Indirect 0.3 mg/dL (0.0-0.9); Bilirubin,Total 0.4 mg/dl (0.2-1.3); Bilirubin,Unconjugated 0.4 mg/dL (0.0-1.1); Blood Urea Nitrogen 13 mg/dl (9-20); Calcium 8.9 mg/dl (8.4-10.2); Carbon Dioxide 24 mmol/L (22.0-30.0); Cholesterol 206 mg/dl (140-200); Estimated Glomerular Filt Rate 103 ml/min (>60); GFR (African American) 124 ML/MIN (>60); Glucose 113 mg/dl (74-100)
[2023-05-24 11:39] LABS: Chol/HDL Ratio 8.6 (1-3.5); HDL Cholesterol 24 mg/dl (40-60); Magnesium 1.9 mg/dl (1.6-2.3)
[2023-05-24 11:50] LABS: Free T4 (Free Thyroxine) 1.03 ng/dl (0.78-2.19)
[2023-05-24 11:55] LABS: Triglycerides 544 mg/dl (30-150)
[2023-05-24 12:09] LABS: Thyroid Stimulating Hormone 2.98 uIU/mL (0.465-4.68)
== END 2023-05-24 23:59 ==
LOC: LAB 10:51
PROVIDERS: PCP Nurse Practitioner Family; Visit Provider Physician Assistant
DX: E78.5 Hyperlipidemia, unspecified (principal); G47.33 Obstructive sleep apnea (adult) (pediatric); I25.119 Atherosclerotic heart disease of native coronary artery with unspecified angina pectoris; K21.9 Gastro-esophageal reflux disease without esophagitis; R06.09 Other forms of dyspnea; R94.31 Abnormal electrocardiogram [ECG] [EKG]; F17.200 Nicotine dependence, unspecified, uncomplicated
CPT/HCPCS: 36415; 80048; 80061; 80076; 83735; 84439; 84443; 85025

== ENCOUNTER 2023-08-16 09:59 | Outpatient (CLI) | payer MEDICAID, SELFPAY | END 2023-08-16 23:59 | disposition home or self-care (01) | LOC: RT 09:59 | PROVIDERS: PCP Nurse Practitioner Family; Visit Provider Physician Assistant | DX: R06.09 Other forms of dyspnea (principal); I48.91 Unspecified atrial fibrillation; I20.89 Other forms of angina pectoris; I42.8 Other cardiomyopathies | CPT/HCPCS: 93270 ==

== ENCOUNTER 2023-08-24 15:10 | Outpatient (CLI) | payer MEDICAID, SELFPAY ==
--- NOTE | 2023-08-24 15:10 | CA_ITS ---
APPROVED REPORT EXAM: Comprehensive 2D, Doppler, and color-flow Echocardiogram Box Printing Machine Operator: Xiomara Zafar RDCS Ht: 6 ft 3 in Wt: 293lbs BSA: 2.58 BP: 130/89 mmHg Indications: AF,CM M-Mode Dimensions RVDd 2.12 cm (0.9-2.6) LA Diam 3.66 cm (1.9-4.0) LVDd 5.69 cm (3.5-5.7) LVDs 3.79 cm (3.5-5.7) IVSd 0.72 cm (0.6-1.1) PWd 0.99 cm (0.6-1.1) EF (Teich) 61.40% FS 33.40% EDV (Teich) 159.40 mL TAPSE 2.02 (<1.7) ESV (Teich) 61.60 mL LV Diastology E Decel Time 187 (160-240 msec) E/A Ratio 1.3 Mitral Valve MV E Max Jose. 94.0 (40-130 cm/s) MV A Velocity 73.0 (40-130 cm/s) E/A Ratio 1.28 MV PHT 55.0 ms Left Ventricle The left ventricle is normal size. The left ventricular systolic function is normal. The left ventricular ejection fraction is within the normal range. There is normal left ventricular wall thickness. There is normal LV segmental wall motion. The left ventricular diastolic function is normal. LVEF is 55%. Right Ventricle The right ventricle is normal size. The right ventricular systolic function is normal. Atria The left atrium size is normal. The right atrium size is normal. Aortic Valve The aortic valve is normal in structure. There is no aortic valvular stenosis. Trace aortic regurgitation. Mitral Valve The mitral valve is normal in structure. No evidence of mitral valve stenosis. Trace mitral regurgitation. Tricuspid Valve The tricuspid valve leaflets are thin and pliable. Trace tricuspid regurgitation. There is insufficient TR jet to estimate RVSP. Pulmonic Valve The pulmonary valve is normal in structure. Trace pulmonic regurgitation. Great Vessels The aortic root is normal in size. The ascending aorta is normal in size. IVC is normal in size and collapses >50% with inspiration. Pericardium There is no pericardial effusion. Other Information Study Quality: Fair Conclusion Normal biventricular systolic function. No significant valvular stenosis or regurgitation. Electronically signed by : Cely Murrieta MD 08/29/2023 00:56:55
== END 2023-08-24 23:59 ==
LOC: RT 15:10
PROVIDERS: PCP Nurse Practitioner Family; Visit Provider Physician Assistant
DX: R06.09 Other forms of dyspnea (principal); I48.91 Unspecified atrial fibrillation; I20.89 Other forms of angina pectoris; I42.8 Other cardiomyopathies; R94.31 Abnormal electrocardiogram [ECG] [EKG]
CPT/HCPCS: 93306

== ENCOUNTER 2023-09-14 10:41 | Day surgery (SDC) | payer MEDICAID, SELFPAY ==
[2023-09-14] VITALS (11 sets, daily range): BP systolic 111–167; BP diastolic 66–106; PULSE 42–67; RESP 15–20; O2SAT 93–99; BMI 36.7
--- NOTE | 2023-09-14 07:08 | IR_ITS ---
APPROVED REPORT Patient Location: Outpatient PROCEDURES Left heart catheterization Left ventriculogram Selective coronary angiogram Intravascular ultrasound of the right coronary INDICATION Known coronary artery disease, Ventricular tachycardia, Sinus pause Informed consent was obtained prior to the procedure. COMPLICATIONS None Estimated Blood Loss: Less than 10 mls TECHNIQUE One percent lidocaine used to anesthetize the right anterior aspect of the wrist. The right radial artery was accessed via the Seldinger technique. A 6 [place] sheath was placed in the right radial artery. 2.5 mg of Verapamil, 800 mcg of nitroglycerin, 1mg Lidocaine and 5000 U Heparin were given through the arterial sheath. The papa catheter was also used to perform left heart catheterization, left ventriculogram and selective coronary angiogram. At the end of the diagnostic angiogram therapeutic ACT was administered giving a therapeutic ACT and the guide catheter was placed in the right coronary followed by Choice PT to support wire placed on the right coronary. Intravascular ultrasound probe was advanced which demonstrated moderate atheromatous plaque with an MLA greater than 4 mm??? in the proximal right coronary. This did not meet hemodynamic significance therefore the apparatus was removed the sheath was removed and hemostasis was achieved using TR banding patient was transferred to the postop holding in stable condition ANGIOGRAPHIC RESULTS The left main artery Normal The left anterior descending artery Has a stent in the proximal to mid segment which is widely patent with minimal in-stent restenosis with excellent proximal distal transitioning. The remaining LAD has mild 10 to 20% stenosis. Large first diagonal artery is widely patent and jailed within the stent in the proximal LAD. SANDRA-3 flow is present in the diagonal artery The circumflex artery Nondominant with proximal 20-30% stenoses The right coronary artery Is dominant and has proximal angiographic ambiguous 40% stenosis which proved to be 60% stenosis based on atheromatous plaque. There is additional mid vessel 20 to 30% stenosis The SUTTON ventriculogram reveals Preserved at 55 to 60% The left ventricular end-diastolic pressure 10 to 15 mmHg IMPRESSION Patent coronary arteries as described above Moderate stenosis in the proximal dominant right coronary which is nonischemic Preserved ejection fraction Normal left ventricular end-diastolic pressure PLAN 1. Continue medical management for coronary disease with associated risk factor modification Electronically signed by : Ángel Goldberg MD 09/14/2023 12:21:55
[2023-09-14 11:14] LABS: Chloride 108 mmol/L (98-107)
[2023-09-14 11:15] LABS: Potassium 4.1 mmoL/L (3.5-5.1); Sodium 139 mmol/L (136-145)
[2023-09-14 11:18] LABS: Anion Gap 12.1 mEq/L (5-15); Blood Urea Nitrogen 9 mg/dl (9-20); Calcium 9.3 mg/dl (8.4-10.2); Carbon Dioxide 23 mmol/L (22.0-30.0); Creatinine Clearance Estimated 187 mL/min (50-200); Estimated Glomerular Filt Rate 90 ml/min (>60); GFR (African American) 109 ML/MIN (>60); Glucose 122 mg/dl (74-100)
[2023-09-14 11:25] LABS: Basophils # 0.1 K/mm3 (0-0.2); Eosinophils # 0.1 K/mm3 (0.0-0.4); Eosinophils % 1.6 % (0.1-12.0); Hematocrit 44.3 % (42.0-52.0); Hemoglobin 15.2 g/dL (14.1-18.0); Lymphocytes # 2.5 K/mm3 (0.7-4.5); Lymphocytes % 31.3 % (10-50); Mean Corpuscular HGB Conc 34.3 g/dL (31.8-35.4); Mean Corpuscular Hemoglobin 30.9 pg (27.0-31.2); Mean Platelet Volume 7.4 fl (7.4-10.4); Monocytes # 0.4 K/mm3 (0.1-1.0); Monocytes % 5.4 % (1.7-9.3); Neutrophils # 4.8 K/mm3 (1.8-7.8); Neutrophils % 60.7 % (37.0-80.0); Platelet Count 276 K/mm3 (142-424); Red Blood Count 4.92 M/mm3 (4.60-6.20); Red Cell Distribution Width 13.5 % (11.5-17.5)
[2023-09-14] MEDS: HEPARIN 1,000 UNITS/ML 10ML VIAL (CATH LAB) 10000 UNIT IV ×2 (11:57→12:07)
[2023-09-14] MEDS: LIDOCAINE 1% 10ML MDV 20 ML IJ (11:57)
[2023-09-14] MEDS: VERAPAMIL 2.5MG/ML 2ML VIAL 2.5 MG IV (11:57)
[2023-09-14] MEDS: HEPARIN 1,000 UNITS/500ML NS (CATH LAB) 3000 UNIT IV (11:57)
[2023-09-14] MEDS: 0.9 % SODIUM CHLORIDE 500 ML 25 ML IV (11:57)
[2023-09-14] MEDS: NITROGLYCERIN 800MCG/8ML SYR (CATH LAB) 800 MCG IA (11:58)
[2023-09-14] MEDS: diphenhydrAMINE 50MG/ML VIAL 50 MG IV (11:58)
[2023-09-14] MEDS: FENTANYL 100MCG/2ML VIAL 50 MCG IV (12:04)
[2023-09-14] MEDS: MIDAZOLAM HCL 1MG/1ML 5ML VIAL 1 MG IV (12:04)
[2023-09-14] MEDS: IOPAMIDOL-370 (76%);100ML BOTTLE 75 ML IV (12:37)
== END 2023-09-14 14:39 | disposition home or self-care (01) ==
LOC: CATHLAB 10:42
PROVIDERS: PCP Nurse Practitioner Family; Visit Provider Internal Medicine
DX: I47.20 Ventricular tachycardia, unspecified (principal); R94.31 Abnormal electrocardiogram [ECG] [EKG]; I25.118 Atherosclerotic heart disease of native coronary artery with other forms of angina pectoris; G47.33 Obstructive sleep apnea (adult) (pediatric); I42.9 Cardiomyopathy, unspecified; E78.2 Mixed hyperlipidemia; F17.210 Nicotine dependence, cigarettes, uncomplicated; Z79.899 Other long term (current) drug therapy; I48.0 Paroxysmal atrial fibrillation; Z79.01 Long term (current) use of anticoagulants
CPT/HCPCS: 80048; 85025; 92978; 93458; 99152; 99153; C1725; C1760; C1769; J1644; Q9967

== ENCOUNTER 2023-10-22 12:44 | Outpatient (CLI) | payer MEDICAID, SELFPAY ==
--- NOTE | 2023-10-22 12:45 | MR_ITS ---
APPROVED REPORT Aluminum Pourer: CLINICAL INDICATION Paroxysmal AFib, frequent ectopy TECHNIQUE Image Acquisition: Cardiac magnetic resonance (CMR) was performed on Siemens Espree MRI 1.5T scanner. Software platform sequences were performed using the Siemens GrexIt MR B19 platform. A set of three-plane, low-resolution, large [id number] localizers were initially acquired. Then axial, coronal, sagittal TrueFISP, as well as axial HASTE images, were obtained. These were followed by gated TrueFISP breathold cinematic sequences obtained in the short axis with 8 mm slices and 2 mm gaps, 2-chamber (vertical long axis), 3-chamber, 4-chamber (horizontal long axis). A bolus of contrast was injected intravenously with first-pass sequences obtained in the short axis and four-chamber planes. After approximately 10 minutes, a TI inside barrel polisher sequence was performed to determine the optimal TI time. Using the optimized TI time, delayed contrast enhancement segmented inversion???recovery TurboFLASH sequences were obtained in the short axis, 2-chamber, 3-chamber, and 4-chamber projections. 2D-velocity phase mapping was performed. Functional parameters were calculated by offline analysis on an independent workstation ([employer] Platform, [employer]). Contrast: ProHance??? (Gadoteridol) FINDINGS MORPHOLOGY AND FUNCTION Left ventricle: The left ventricle is normal in size. The indexed left ventricular end-diastolic volume (LVEDVi) is 73 ml/m2 (reference range 57-105 ml/m2 in males, 56-96 ml/m2 in females). Normal left ventricular systolic function is present. There is normal left ventricular wall thickness. There are no regional wall motion abnormalities noted. LVEF is calculated at 60.1% (reference range 57-77%). Right ventricle: The right ventricle is normal in size. The indexed right ventricular end-diastolic volume (RVEDVi) is 75 ml/m2 (reference range 61-121 ml/m2 in males, 48-112 ml/m2 in females). Normal right ventricular systolic function is present. RVEF is calculated at 53.1% (reference range 52-72% in males, 51-71% in females). Atria: The left atrium is normal in size. The maximum indexed left atrial volume is 27 ml/m2 (reference range 26-52 ml/m2 in males, 27-53 ml/m2 in females). The right atrium is normal in size. The maximum indexed right atrial volume is 18 ml/m2 (reference range 18-90 ml/m2). Aorta: The diameter of the aortic annulus is normal, measuring 26 mm (coronal view reference range 21-30 mm in males, 19-27 mm in females). The diameter of the aortic sinus is normal, measuring 31 mm (coronal view reference range 25-42 mm in males, 24-36 mm in females). The diameter of the sinotubular junction is normal, measuring 27 mm (coronal view reference range 18-32 mm in males, 18-28 mm in females). The diameters of the ascending and descending thoracic aorta are normal. Main pulmonary artery: The main pulmonary artery diameter is normal. Pericardium: The pericardial thickness is normal. The pericardial thickness measures 1.5 mm (normal < 4.0 mm). There is no pericardial effusion. VALVES The valvular morphologies in the visualized sequences appear normal. There is no significant valvular stenosis or regurgitation of the mitral, aortic, tricuspid, or pulmonic valve noted visually. Systolic anterior motion of the mitral valve is not visualized. Ratio of pulmonary to systemic flow, Qp:Qs ratio = 0.8 (normal < or = 1.2, hemodynamically significant shunt > 1.5), demonstrating no evidence of hemodynamically significant shunt. TISSUE CHARACTERIZATION Resting Perfusion: Normal myocardial blood flow at rest. No evidence of resting hypoperfusion. Myocardial Fibrosis and/or edema: Normal gadolinium kinetics are present. No evidence of late gadolinium enhancement is noted, consistent with absence of myocardial scarring, infarction, or necrosis. T2-weighted imaging demonstrates no evidence of myocardial edema or inflammation. OTHER No other significant findings are noted. However, this exam is focused on the cardiac structure and function. IMPRESSION Normal LV size with normal LV systolic function. LVEDVi= 73 ml/m2 and LVEF= 60.1%. Normal RV size with normal RV systolic function. RVEDVi= 75 ml/m2 and RVEF= 53.1%. No atrial enlargement. No CMR evidence of myocardial scarring, infarction, or necrosis. No evidence of myocardial edema or inflammation. Perfusion analysis demonstrates normal blood flow at rest with no evidence of resting hypoperfusion. Ratio of pulmonary to systemic flow, Qp:Qs ratio = 0.8 (normal < or = 1.2, hemodynamically significant shunt > 1.5), demonstrating no evidence of hemodynamically significant shunt. Overall, this CMR demonstrates normal cardiac function and structure. No evidence of cardiomyopathy. No evidence of myocardial scarring, fibrosis, infarction, or edema. COMPARISON None CRITICAL RESULT None COMMUNICATION Per this written report The findings of this cardiac MR were reviewed, reported, and signed by Damien Murrieta MD (Paint Maker). Conclusion Electronically signed by : Cely Murrieta MD 10/31/2023 23:00:18
[2023-10-22 13:17] LABS: Blood Urea Nitrogen 13 mg/dl (9-20); Estimated Glomerular Filt Rate 71 ml/min (>60); GFR (African American) 86 ML/MIN (>60)
[2023-10-22] MEDS: GADOTERIDOL INJ 20ML SYRINGE 20 ML IV (14:18)
[2023-10-22] MEDS: GADOTERIDOL INJ 10ML SYRINGE 8 ML IV (14:18)
[2023-10-22] MEDS: SODIUM CHLORIDE 0.9% 10ML SYR (RAD ONLY) 10 ML IV (14:18)
[2023-10-22] MEDS: 0.9 % SODIUM CHLORIDE 50 ML VIAL 25 ML IV (14:18)
== END 2023-10-22 23:59 | disposition home or self-care (01) ==
LOC: RAD 12:45
PROVIDERS: PCP Nurse Practitioner Family; Visit Provider Physician Assistant
DX: I42.9 Cardiomyopathy, unspecified (principal); I47.20 Ventricular tachycardia, unspecified; R94.31 Abnormal electrocardiogram [ECG] [EKG]; R06.09 Other forms of dyspnea; I25.118 Atherosclerotic heart disease of native coronary artery with other forms of angina pectoris; F17.210 Nicotine dependence, cigarettes, uncomplicated
CPT/HCPCS: 36415; 75561; 82565; 84520; A9576

== ENCOUNTER 2023-12-05 14:05 | Emergency (ER) | payer MEDICAID, SELFPAY ==
--- NOTE | 2023-12-05 14:06 | ECG_ITS ---
APPROVED REPORT Exam: Resting ECG HR:102 bpm ECG Measurements Heart Rate 102 AXES QRSd 95 QRS 36 QT 337 T -4 QTc 396 Conclusion ATRIAL FIBRILLATION WITH RAPID VENTRICULAR RESPONSE NONSPECIFIC T-WAVE ABNORMALITY ABNORMAL RHYTHM ECG Electronically signed by : RG FRYE, 12/05/2023 16:16:05
[2023-12-05 14:07] VITALS: BP 143/99; PULSE 101; PULSE 102; RESP 21; TEMP 36.9; O2SAT 97; BMI 36.8
--- NOTE | 2023-12-05 14:08 | XR_ITS ---
FINAL REPORT TECHNIQUE: Chest PA & Lateral CLINICAL HISTORY: Chest pain COMPARISON: 08/11/2021 FINDINGS: 2 views of the chest were performed. The heart size is normal. The mediastinum is within normal limits. There is no acute cardiopulmonary process. There are no pleural effusions. There is no pneumothorax. The bony thorax appears intact. IMPRESSION: No acute cardiopulmonary process. Reviewed, Interpreted and Dictated by Bharath Irwin MD Transcribed by Xochitl Marion Authenticated and [facility]
--- NOTE | 2023-12-05 14:08 | ED_ITS ---
<Statement entered by Socorro Ovalle DO - 12/05/23 23:18> I was consulted by the VINNY, and we discussed the complexity of the problems being addressed. I approved the treatment and management plan for this patient's care in the emergency department, thus performing a substantive portion of the medical decision making. Socorro Ovalle DO Discharge Plan Disposition Patient Disposition: Home, Self-Care Condition: Good Prescriptions Prescriptions: No Action atorvastatin 20 mg tablet 20 mg PO DAILY Qty: 90 3RF ramipril 2.5 mg capsule 2.5 mg PO DAILY Qty: 90 3RF bisoprolol fumarate 5 mg tablet 2.5 mg PO DAILY Qty: 90 3RF Eliquis 5 mg tablet 0RF Eliquis 5 mg tablet 5 mg PO BID Qty: 60 2RF Referrals Follow up/Referrals: Bryan Benito APRN [Primary Care Provider] - See instructions Activity Restrictions/Add. Instructions Additional Instructions/Restrictions: Please call first thing in the morning to establish a ER follow-up with cardiology. Return to ER for any worsening signs or symptoms as needed. Clinical Impressions Clinical Impression: Atrial fibrillation with rapid ventricular response Print Language Print Language: Rw[place] Discharge ED Provider: Socorro Ovalle HPI <MELANIE Khanna - Last Filed: 12/05/23 16:46> General Chief Complaint: Chest Pain Stated Complaint: chest pain Time Seen by Provider: 12/05/23 14:08 History of Present Illness HPI narrative: Patient presents for evaluation of chest pain . Patient reports that he has been having nonfocal chest pain with malaise shortness of breath but no fevers chills hemoptysis hematochezia hematemesis hematuria nausea vomiting or diarrhea. Patient has a past medical history of atrial fibrillation on bisoprolol and Eliquis and is followed by cardiology here at [facility], hyperlipidemia, hypertension. Patient states that he recently had his bisoprolol dose reduced due to my heart rate being too low approximately 1 month ago. Related Data Previous Rx's ?Medication ?Instructions ?Recorded atorvastatin 20 mg tablet 20 mg PO DAILY High cholesterol 05/18/23 #90 tabs ramipril 2.5 mg capsule 2.5 mg PO DAILY #90 caps 07/09/23 bisoprolol fumarate 5 mg tablet 2.5 mg (1/2 x 5 mg) PO DAILY #90 08/20/23 tabs apixaban 5 mg tablet (Eliquis) 5 mg PO BID #60 tabs 10/26/23 Allergies Allergy/AdvReac Type Severity Reaction Status Date / Time No Known Allergies Allergy Verified 11/01/23 10:55 [facility] <MELANIE Khanna - Last Filed: 12/05/23 16:46> [facility] Disclaimer: The information contained in this section may have been updated after the patient was seen, as this information can be updated by other users. Medical History Abnormality on patient-activated cardiac event recorder Atrial fibrillation by electrocardiogram Stable angina Dyspnea on exertion Angina, class II Cardiomyopathy Abnormal echocardiogram Atypical angina Abnormal cardiovascular stress test HLD (hyperlipidemia) Abnormal EKG Tobacco dependence syndrome Dyspnea Gastroesophageal reflux disease Chest pain Left arm numbness Surgical History Status post fusion of wrist Family History Other Family history of diabetes mellitus type II Family history of myocardial infarction Social History Smoking Status: Never smoker second hand exposure: No alcohol intake: never substance use type: denies use current occupational status: disabled Travel in the last 8 weeks: Inside the [place] household members: spouse housing: house current occupational exposures/hazards: No caffeine: Yes <MELANIE Khanna - Last Filed: 12/05/23 16:46> ROS Obtained: Yes Systems reviewed as appropriate & no additional complaints except as documented Physical Exam <MELNAIE Khanna Last Filed: 12/05/23 16:46> General General appearance: alert and in no apparent distress Chest Chest inspection: Present normal inspection and symmetric chest wall rise; Absent tenderness Respiratory Respiratory exam: Present normal lung sounds bilaterally; Absent respiratory distress, wheezes or accessory muscle use Cardiovascular Cardiovascular exam: Present irregular rhythm (Irregularly irregular rate and rhythm), normal heart sounds, +S1 and +S2 Neurological Exam Neurological exam: Present alert, oriented X3 and CN II-XII intact Psychiatric Psychiatric exam: Present normal affect HEART Score <MELANIE Khanna Last Filed: 12/05/23 16:46> HEART Score HEART Score assessment performed?: No History (anamnesis): Slightly suspicious ECG: Non-specific disturbance Age: 45-65 years Risk factors: Atherosclerosis history Troponin: </= normal limit HEART Score: 4 <Socorro Ovalle DO - Last Filed: 12/05/23 23:18> HEART Score HEART Score: 4 Critical Care <MELANIE Khanna - Last Filed: 12/05/23 16:46> Critical Care Time Critical Care Time: No Medical Decision Making <MELANIE Khanna - Last Filed: 12/05/23 16:46> Medical Records Medical records reviewed: Yes I reviewed the patient's medical records. Paul Inquiry Pt receiving controlled substance: No Vital Signs Vital Signs: 12/05/23 14:07 12/05/23 14:07 12/05/23 14:22 Temperature 98.4 F Temperature Source Oral Pulse Rate 102 H 97 H Pulse Rate [Right] 101 H Respiratory Rate 21 15 Blood Pressure 117/85 Blood Pressure [Left Arm] 143/99 H Blood Pressure Mean [Left Arm] 113 Blood Pressure Source Blood Pressure Source [Left Arm] Automatic Cuff Blood Pressure Position 02 Sat by Pulse Oximetry 97 97 Oxygen Delivery Method Room Air 12/05/23 15:01 12/05/23 17:08 Temperature 97.7 F Temperature Source Oral Pulse Rate 86 82 Pulse Rate [Right] Respiratory Rate 20 13 Blood Pressure 122/84 133/97 H Blood Pressure [Left Arm] Blood Pressure Mean [Left Arm] Blood Pressure Source Automatic Cuff Blood Pressure Source [Left Arm] Blood Pressure Position Sitting 02 Sat by Pulse Oximetry 96 Oxygen Delivery Method Room Air Lab Data Lab results reviewed: Yes I reviewed the patient's lab results. Labs: Lab Results 12/05/23 14:10: WBC 8.1, RBC 5.15, Hgb 16.0, Hct 46.8, MCV 90.9, MCH 31.1, MCHC 34.2, RDW 14.0, Plt Count 264, MPV 7.4, Neut % (Auto) 64.1, Lymph % (Auto) 28.9, [place] % (Auto) 4.1, Eos % (Auto) 2.0, Baso % (Auto) 0.9, Neut # (Auto) 5.2, Lymph # (Auto) 2.4, [place] # (Auto) 0.3, Eos # (Auto) 0.2, Baso # (Auto) 0.1, D-Dimer 0.32, Sodium 138, Potassium 3.8, Chloride 109 H, Carbon Dioxide 22, Anion Gap 10.8, BUN 12, Creatinine 0.90, Estimated GFR 90, Est GFR ( Amer) 109, G lucose 177 H, Calcium 8.9, Magnesium 2.0, Total Bilirubin 0.8, AST 38, ALT 26, Alkaline Phosphatase 98, Troponin I < 0.01, NT-Pro-B Natriuret Pep 526 H, Total Protein 7.4, Albumin 4.0, Globulin 3.4 H, Albumin/Globulin Ratio 1.2, Lipase 250 12/05/23 15:26: Urine Color Yellow, Urine Appearance Clear, Urine pH 6.0, Ur Specific Reading 1.025, Urine Protein Negative, Urine Glucose (UA) Negative, Urine Ketones Negative, Urine Blood Negative, Urine Nitrate Negative, Urine Bilirubin Negative, Urine Urobilinogen 0.2, Ur Leukocyte Esterase Negative, Urine RBC None, Urine WBC Occasional, Ur Squamous Epith Cells Occasional, Urine Bacteria Trace, Urine Mucus Trace, Urine Opiates Screen Negative, Urine Methadone Screen Negative, Ur Barbituates Screen Negative, Ur Phencyclidine Scrn Negative, Ur Amphetamines Screen Negative, U Benzodiazepines Scrn Negative, Urine Cocaine Screen Negative, U Marijuana (THC) Screen Negative 12/05/23 14:10 12/05/23 14:10 Response Orders (Tests/Meds): ED MEDICATIONS Discontinued Medications Generic Name Dose Route Start Last Admin Trade Name Rajanq PRN Reason Stop Dose Admin Acetaminophen 1,000 mg 12/05/23 14:08 12/05/23 14:23 Acetaminophen 1,000mg/100ml Vial IV 12/05/23 14:09 1,000 mg ONCE ONE Administration Belladonna Alkaloids 60 ml 12/05/23 14:08 12/05/23 14:20 Belladonna Alkaloids 60 Ml Ml PO 12/05/23 14:09 60 ml ONCE ONE Administration Lactated Ringer's 1,000 mls @ 999 mls/hr 12/05/23 14:08 12/05/23 14:23 Lactated Ringer's 1000 Ml Bag IV 12/05/23 15:08 999 mls/hr .Q1H1M ONE Administration Ketorolac Tromethamine 15 mg 12/05/23 14:08 12/05/23 14:22 Ketorolac 30mg/Ml Vial IV 12/05/23 14:09 15 mg ONCE ONE Administration ORDERS Category Date Time Status Chest XR 2 view (NOT portable) [XR chest 2V] Stat Exams 12/05/23 14:08 Completed BNP [NT Pro Brain Natriuretic Pep.] Stat Lab 12/05/23 14:10 Completed CBC w/Auto Diff [Complete Blood Count Auto Diff] Stat Lab 12/05/23 14:10 Completed CMP [Comprehensive Metabolic Panel] Stat Lab 12/05/23 14:10 Completed D-Dimer Stat Lab 12/05/23 14:10 Completed Lipase Stat Lab 12/05/23 14:10 Completed Magnesium Stat Lab 12/05/23 14:10 Completed Trop I [Troponin I] Stat Lab 12/05/23 14:10 Completed UA [Urinalysis and Microscopic] Stat Lab 12/05/23 15:26 Completed UDS [Drug Screen,Urine] Stat Lab 12/05/23 15:26 Completed MDM Narrative Medical Decision Narrative: In summary patient is a 48-year-old male who presents to the emergency department for evaluation of chest pain and malaise. Patient is normotensive with a blood pressure of 143/99 with a variable heart rate currently around 100 and atrial fibrillation on the bedside monitor satting at 97% on room air with a respiratory rate of 21 and afebrile at 98.4. Physical exam is remarkable for normal breath sounds no evidence of volume overload no abdominal pain no reproducible chest pain on palpation. Differential diagnosis includes PE (although less likely considering patient is on Eliquis) heart failure versus A- fib RVR versus ACS versus infectious process etc. Initial workup will be conducted with hematologic labs twelve-lead EKG plain film chest x-ray. Initial interventions include Toradol Tylenol. Initial workup reviewed by me and his hematologic labs are nonactionable including an undetectable troponin and normal D-dimer and my informal interpretation of his 2 view plain film chest x-ray shows no acute process. Upon repeat evaluation patient does feel some better and his heart rate is now staying down in the 70s and 80s doubt intervention. Given this patient is appropriate for discharge with close follow-up with cardiology. He is to call the cardiology office in the morning to establish return. We have essentially ruled out any serious or life-threatening problem and I think his diagnosis stems from his decrease in his beta-blockade that is allowing his heart rate to climb while in A-fib. He is to address with cardiology at his next follow-up within 48 hours. <Socorro Ovalle, DO - Last Filed: 12/05/23 23:18> Vital Signs Vital Signs: 12/05/23 14:07 12/05/23 14:07 12/05/23 14:22 Temperature 98.4 F Temperature Source Oral Pulse Rate 102 H 97 H Pulse Rate [Right] 101 H Respiratory Rate 21 15 Blood Pressure 117/85 Blood Pressure [Left Arm] 143/99 H Blood Pressure Mean [Left Arm] 113 Blood Pressure Source Blood Pressure Source [Left Arm] Automatic Cuff Blood Pressure Position 02 Sat by Pulse Oximetry 97 97 Oxygen Delivery Method Room Air 12/05/23 15:01 12/05/23 17:08 Temperature 97.7 F Temperature Source Oral Pulse Rate 86 82 Pulse Rate [Right] Respiratory Rate 20 13 Blood Pressure 122/84 133/97 H Blood Pressure [Left Arm] Blood Pressure Mean [Left Arm] Blood Pressure Source Automatic Cuff Blood Pressure Source [Left Arm] Blood Pressure Position Sitting 02 Sat by Pulse Oximetry 96 Oxygen Delivery Method Room Air Lab Data Labs: Lab Results 12/05/23 14:10: WBC 8.1, RBC 5.15, Hgb 16.0, Hct 46.8, MCV 90.9, MCH 31.1, MCHC 34.2, RDW 14.0, Plt Count 264, MPV 7.4, Neut % (Auto) 64.1, Lymph % (Auto) 28.9, [place] % (Auto) 4.1, Eos % (Auto) 2.0, Baso % (Auto) 0.9, Neut # (Auto) 5.2, Lymph # (Auto) 2.4, [place] # (Auto) 0.3, Eos # (Auto) 0.2, Baso # (Auto) 0.1, D-Dimer 0.32, Sodium 138, Potassium 3.8, Chloride 109 H, Carbon Dioxide 22, Anion Gap 10.8, BUN 12, Creatinine 0.90, Estimated GFR 90, Est GFR ( Amer) 109, G lucose 177 H, Calcium 8.9, Magnesium 2.0, Total Bilirubin 0.8, AST 38, ALT 26, Alkaline Phosphatase 98, Troponin I < 0.01, NT-Pro-B Natriuret Pep 526 H, Total Protein 7.4, Albumin 4.0, Globulin 3.4 H, Albumin/Globulin Ratio 1.2, Lipase 250 12/05/23 15:26: Urine Color Yellow, Urine Appearance Clear, Urine pH 6.0, Ur Specific Reading 1.025, Urine Protein Negative, Urine Glucose (UA) Negative, Urine Ketones Negative, Urine Blood Negative, Urine Nitrate Negative, Urine Bilirubin Negative, Urine Urobilinogen 0.2, Ur Leukocyte Esterase Negative, Urine RBC None, Urine WBC Occasional, Ur Squamous Epith Cells Occasional, Urine Bacteria Trace, Urine Mucus Trace, Urine Opiates Screen Negative, Urine Methadone Screen Negative, Ur Barbituates Screen Negative, Ur Phencyclidine Scrn Negative, Ur Amphetamines Screen Negative, U Benzodiazepines Scrn Negative, Urine Cocaine Screen Negative, U Marijuana (THC) Screen Negative Response Orders (Tests/Meds): ED MEDICATIONS Discontinued Medications Generic Name Dose Route Start Last Admin Trade Name Freq PRN Reason Stop Dose Admin Acetaminophen 1,000 mg 12/05/23 14:08 12/05/23 14:23 Acetaminophen 1,000mg/100ml Vial IV 12/05/23 14:09 1,000 mg ONCE ONE Administration Belladonna Alkaloids 60 ml 12/05/23 14:08 12/05/23 14:20 Belladonna Alkaloids 60 Ml Ml PO 12/05/23 14:09 60 ml ONCE ONE Administration Lactated Ringer's 1,000 mls @ 999 mls/hr 12/05/23 14:08 12/05/23 14:23 Lactated Ringer's 1000 Ml Bag IV 12/05/23 15:08 999 mls/hr .Q1H1M ONE Administration Ketorolac Tromethamine 15 mg 12/05/23 14:08 12/05/23 14:22 Ketorolac 30mg/Ml Vial IV 12/05/23 14:09 15 mg ONCE ONE Administration ORDERS Category Date Time Status Chest XR 2 view (NOT portable) [XR chest 2V] Stat Exams 12/05/23 14:08 Completed BNP [NT Pro Brain Natriuretic Pep.] Stat Lab 12/05/23 14:10 Completed CBC w/Auto Diff [Complete Blood Count Auto Diff] Stat Lab 12/05/23 14:10 Completed CMP [Comprehensive Metabolic Panel] Stat Lab 12/05/23 14:10 Completed D-Dimer Stat Lab 12/05/23 14:10 Completed Lipase Stat Lab 12/05/23 14:10 Completed Magnesium Stat Lab 12/05/23 14:10 Completed Trop I [Troponin I] Stat Lab 12/05/23 14:10 Completed UA [Urinalysis and Microscopic] Stat Lab 12/05/23 15:26 Completed UDS [Drug Screen,Urine] Stat Lab 12/05/23 15:26 Completed ECG Data Tracing #1: Attestation: I reviewed this ECG and interpreted as documented below: ECG Narrative: Atrial fibrillation with rapid ventricular response with a ventricular rate of [address] changes concerning for STEMI. Normal axis. ECG initial impression date: 12/05/23 ECG initial impression time: 14:08
[2023-12-05] MEDS: BELLADONNA ALKALOIDS 60 ML ML PO (14:20)
[2023-12-05 14:22] VITALS: BP 117/85; PULSE 97; RESP 15; O2SAT 97
[2023-12-05] MEDS: KETOROLAC 30MG/ML VIAL 15 MG IV (14:22)
[2023-12-05 14:23] LABS: Basophils # 0.1 K/mm3 (0-0.2); Basophils % 0.9 % (0.1-2.0); Eosinophils # 0.2 K/mm3 (0.0-0.4); Hematocrit 46.8 % (42.0-52.0); Lymphocytes # 2.4 K/mm3 (0.7-4.5); Lymphocytes % 28.9 % (10-50); Mean Corpuscular HGB Conc 34.2 g/dL (31.8-35.4); Mean Corpuscular Hemoglobin 31.1 pg (27.0-31.2); Mean Corpuscular Volume 90.9 fl (80-94); Mean Platelet Volume 7.4 fl (7.4-10.4); Monocytes # 0.3 K/mm3 (0.1-1.0); Monocytes % 4.1 % (1.7-9.3); Neutrophils # 5.2 K/mm3 (1.8-7.8); Neutrophils % 64.1 % (37.0-80.0); Platelet Count 264 K/mm3 (142-424); Red Blood Count 5.15 M/mm3 (4.60-6.20); White Blood Count 8.1 K/mm3 (4.8-10.8)
[2023-12-05] MEDS: ACETAMINOPHEN 1,000MG/100ML VIAL 1000 MG IV (14:23)
[2023-12-05] MEDS: LACTATED RINGERS 1000ML 1,000 ML 999 ML IV (14:23)
[2023-12-05 14:34] LABS: Alanine Aminotransferase 26 U/L (12-78); Albumin/Globulin Ratio 1.2 (1.1-1.8); Alkaline Phosphatase 98 U/L (38-126); Aspartate Amino Transferase 38 U/L (17-59); Bilirubin,Total 0.8 mg/dl (0.2-1.3); Blood Urea Nitrogen 12 mg/dl (9-20); Calcium 8.9 mg/dl (8.4-10.2); Carbon Dioxide 22 mmol/L (22.0-30.0); Chloride 109 mmol/L (98-107); Estimated Glomerular Filt Rate 90 ml/min (>60); GFR (African American) 109 ML/MIN (>60); Globulin 3.4 g/dL (1.3-3.2); Glucose 177 mg/dl (74-100); Lipase 250 U/L (23-300); Potassium 3.8 mmoL/L (3.5-5.1); Total Protein,Serum 7.4 g/dl (6.3-8.2)
--- NOTE | 2023-12-05 14:37 | PC.NURSE ---
pt out of room with Rad for x-ray
--- NOTE | 2023-12-05 14:43 | PC.NURSE ---
pt back in room from x-ray
[2023-12-05 14:46] LABS: Anion Gap 10.8 mEq/L (5-15); Sodium 138 mmol/L (136-145)
[2023-12-05 14:51] LABS: Troponin I < 0.01 ng/ml (0.00-0.034)
[2023-12-05 15:01] VITALS: BP 122/84; PULSE 86; RESP 20; O2SAT 96
[2023-12-05 15:35] LABS: Microscopic, Urine URINE MICROSCOPIC (MICROSCOPIC)
[2023-12-05 15:37] LABS: Appearance,Urine CLEAR (Clear); Bilirubin,Urine Negative (Negative); Blood, Urine Negative (Negative); Color,Urine YELLOW (Yellow); Glucose,Urine (UA) Negative (Negative); Ketones,Urine Negative (Negative); Leukocyte Esterase,Urine Negative (Negative); Nitrate,Urine Negative (Negative); Protein,Urine Negative (Negative); Specific Gravity, Urine 1.025 (1.005-1.030); Urobilinogen,Urine 0.2 EU/dl (0.2)
[2023-12-05 15:44] LABS: Bacteria,Urine Trace /lpf; Mucus,Urine Trace /lpf; Squamous Epithelial Cell,Urine Occasional #/hpf (0-5); WBC,Urine Occasional #/hpf (0-3)
[2023-12-05 15:46] LABS: NT Pro Brain Natriuretic Pep. 526 pg/mL (0-125)
[2023-12-05 15:51] LABS: Amphetamine/Metha Screen,Urine Negative ng/ml (<1000); Barbiturates Screen,Urine Negative ng/ml (<200)
[2023-12-05 15:52] LABS: Benzodiazepines Screen,Urine Negative ng/ml (<200)
[2023-12-05 15:53] LABS: Cannabinoid Screen,Urine Negative ng/ml (<50); Cocaine Screen,Urine Negative ng/ml (<300)
[2023-12-05 15:54] LABS: Methadone Screen,Urine Negative ng/ml (<300)
[2023-12-05 15:55] LABS: Opiate Screen,Urine Negative ng/ml (<300); Phencyclidine Screen,Urine Negative ng/ml (<25)
[2023-12-05 16:12] LABS: D-Dimer 0.32 ug/mL (0.0-0.5)
[2023-12-05 17:08] VITALS: BP 133/97; PULSE 82; RESP 13; TEMP 36.5; O2SAT 97
== END 2023-12-05 17:09 | disposition home or self-care (01) ==
PROVIDERS: Physician Assistant; Emergency Provider Emergency Medicine; PCP Nurse Practitioner Family
DX: I48.91 Unspecified atrial fibrillation (principal); R07.9 Chest pain, unspecified; R06.02 Shortness of breath; I10 Essential (primary) hypertension; E78.5 Hyperlipidemia, unspecified
CPT/HCPCS: 71046; 80053; 80307; 81001; 83690; 83735; 83880; 84484; 85025; 85378; 93005; 96361; 96374; 96375; 99284; J0131; J1885; J7120

== ENCOUNTER 2023-12-06 11:59 | Outpatient (CLI) | payer MEDICAID, SELFPAY | END 2023-12-06 23:59 | disposition home or self-care (01) | LOC: RT 12:01 | PROVIDERS: PCP Nurse Practitioner Family; Visit Provider Internal Medicine | DX: I47.20 Ventricular tachycardia, unspecified (principal) | CPT/HCPCS: 93270 ==

== ENCOUNTER 2024-02-11 14:48 | Outpatient (CLI) | payer MEDICAID, SELFPAY ==
--- NOTE | 2024-02-11 14:56 | XR_ITS ---
FINAL REPORT CLINICAL HISTORY: hip pain 3-4 days FINDINGS: RIGHT HIP Two views of the right hip demonstrate no acute fracture or dislocation. There are mild degenerative changes. The visualized bony structures are well aligned. No soft tissue abnormality is seen. IMPRESSION: No acute bony abnormality. Reviewed, Interpreted and Dictated by Ronen Puckett III, MD Transcribed by Jeaneth Champion Authenticated and [facility]
--- NOTE | 2024-02-11 14:56 | XR_ITS ---
FINAL REPORT CLINICAL HISTORY: ankle pain 3-4 days FINDINGS: RIGHT ANKLE 3 views of the right ankle were obtained. There is no acute fracture or dislocation. There are mild degenerative changes. A chronic calcification is seen inferior to the lateral malleolus. The mortise is intact. Visualized joint spaces are normally aligned. Soft tissues are unremarkable. IMPRESSION: No acute bony abnormality. Reviewed, Interpreted and Dictated by Ronen Puckett III, MD Transcribed by Jeaneth Champion Authenticated and [facility]
== END 2024-02-11 23:59 | disposition home or self-care (01) ==
LOC: RAD 14:53
PROVIDERS: PCP Nurse Practitioner Family; Visit Provider Family Medicine
DX: M25.551 Pain in right hip (principal); M25.571 Pain in right ankle and joints of right foot
CPT/HCPCS: 73502; 73610

== ENCOUNTER 2024-02-15 10:54 | Outpatient (CLI) | payer MEDICAID, SELFPAY ==
--- NOTE | 2024-02-15 11:00 | US_ITS ---
FINAL REPORT CLINICAL HISTORY: CLAUDICATION,REST PAIN,SMOKER,HTN,HLD,PRIOR RT ANKLE SURGERY COMPARISON: None FINDINGS: ANKLE-BRACHIAL PRESSURE INDICES Pressure indices are as follows: RIGHT LOWER EXTREMITY: Ankle-brachial pressure index: 1.3 Comments: Normal LEFT LOWER EXTREMITY: Ankle-brachial pressure index: 1.2 Comments: Normal IMPRESSION: No evidence of significant obstructive peripheral vascular disease of the lower extremities Reviewed, Interpreted and Dictated by Ronen Puckett III, MD Transcribed by Wanda Minor Authenticated and [facility]
== END 2024-02-15 23:59 | disposition home or self-care (01) ==
LOC: RT 10:57
PROVIDERS: PCP Nurse Practitioner Family; Visit Provider Family Medicine
DX: R09.89 Other specified symptoms and signs involving the circulatory and respiratory systems (principal); I73.9 Peripheral vascular disease, unspecified; M79.604 Pain in right leg; M79.605 Pain in left leg
CPT/HCPCS: 93923

== ENCOUNTER 2024-05-27 07:59 | Outpatient (CLI) | payer MEDICAID, SELFPAY ==
[2024-05-27 08:39] LABS: Basophils % 0.6 % (0.1-2.0); Eosinophils # 0.2 K/mm3 (0.0-0.4); Eosinophils % 2.3 % (0.1-12.0); Lymphocytes # 2.2 K/mm3 (0.7-4.5); Lymphocytes % 34.3 % (10-50); Mean Corpuscular HGB Conc 34.1 g/dL (31.8-35.4); Monocytes # 0.5 K/mm3 (0.1-1.0); Monocytes % 7.5 % (1.7-9.3); Neutrophils # 3.5 K/mm3 (1.8-7.8); Neutrophils % 54.8 % (37.0-80.0); Platelet Count 236 K/mm3 (142-424); White Blood Count 6.4 K/mm3 (4.8-10.8)
[2024-05-27 09:22] LABS: Alanine Aminotransferase 34 U/L (12-78); Albumin Level 4.2 g/dl (3.5-5.0); Alkaline Phosphatase 97 U/L (38-126); Anion Gap 12.5 mEq/L (5-15); Aspartate Amino Transferase 40 U/L (17-59); Bilirubin,Direct 0.2 mg/dl (0.0-0.4); Bilirubin,Indirect 0.2 mg/dL (0.0-0.9); Bilirubin,Total 0.4 mg/dl (0.2-1.3); Bilirubin,Unconjugated 0.2 mg/dL (0.0-1.1); Blood Urea Nitrogen 11 mg/dl (9-20); Calcium 9.1 mg/dl (8.4-10.2); Carbon Dioxide 27 mmol/L (22.0-30.0); Chloride 106 mmol/L (98-107); Chol/HDL Ratio 6.2 (1-3.5); Cholesterol 143 mg/dl (140-200); Estimated Glomerular Filt Rate 102 ml/min (>60); GFR (African American) 124 ML/MIN (>60); Glucose 120 mg/dl (74-100); HDL Cholesterol 23 mg/dl (40-60); Magnesium 2.1 mg/dl (1.6-2.3); Potassium 4.5 mmoL/L (3.5-5.1); Sodium 141 mmol/L (136-145); Triglycerides 205 mg/dl (30-150); VLDL Cholesterol 41 mg/dL (0-40)
[2024-05-27 09:33] LABS: Direct LDL Cholesterol 84.54 mg/dL (100-129)
[2024-05-27 09:37] LABS: Free T4 (Free Thyroxine) 1.06 ng/dl (0.78-2.19)
[2024-05-27 09:53] LABS: Thyroid Stimulating Hormone 2.81 uIU/mL (0.465-4.68)
== END 2024-05-27 23:59 | disposition home or self-care (01) ==
LOC: LAB 08:00
PROVIDERS: PCP Nurse Practitioner Family; Visit Provider Physician Assistant
DX: I25.118 Atherosclerotic heart disease of native coronary artery with other forms of angina pectoris (principal); I42.9 Cardiomyopathy, unspecified; E78.2 Mixed hyperlipidemia; F17.200 Nicotine dependence, unspecified, uncomplicated; K21.9 Gastro-esophageal reflux disease without esophagitis; G47.33 Obstructive sleep apnea (adult) (pediatric); R42 Dizziness and giddiness; I48.0 Paroxysmal atrial fibrillation; I47.10 Supraventricular tachycardia, unspecified
CPT/HCPCS: 36415; 80048; 80061; 80076; 83735; 84439; 84443; 85025

== ENCOUNTER 2024-08-24 14:26 | Emergency (ER) | payer MEDICAID, SELFPAY ==
[2024-08-24] VITALS (10 sets, daily range): BP systolic 119–214; BP diastolic 56–100; PULSE 47–85; RESP 16–23; TEMP 36.6–36.8; O2SAT 96–98; BMI 34.0; BMI 34.9
--- NOTE | 2024-08-24 14:27 | ECG_ITS ---
APPROVED REPORT Exam: Resting ECG HR:85 bpm ECG Measurements Heart Rate 85 AXES CO 159 P 50 QRSd 94 QRS 43 QT 365 T 20 QTc 408 Conclusion SINUS RHYTHM NORMAL ECG Electronically signed by : RG FRYE, 08/25/2024 04:24:12
[2024-08-24] MEDS: ASPIRIN 81MG CHEWABLE TABLET 324 MG PO (14:33)
--- NOTE | 2024-08-24 14:35 | PC.NURSE ---
Per HEEL SHAVER at bedside, hold nitroglycerin for the time being. ANGIE Hinojosa made aware.
--- NOTE | 2024-08-24 14:39 | XR_ITS ---
PROCEDURE INFORMATION: Exam: XR Chest Exam date and time: 08/24/2024 2:43 PM Age: 49 years old Clinical indication: Pain; Chest pressure; Additional info: SOA cp TECHNIQUE: Imaging protocol: Radiologic exam of the chest. Views: 1 view. COMPARISON: CR XR CHEST 2V 12/05/2023 2:27 PM FINDINGS: Lungs: The lungs are clear. Low lung volumes. Pleural spaces: No pneumothorax or pleural effusion. Heart/Mediastinum: Heart size is enlarged. Mediastinal contours unremarkable. Bones/joints: No acute osseous or soft tissue abnormality. IMPRESSION: 1. The lungs are clear. 2. Cardiomegaly.
--- NOTE | 2024-08-24 14:39 | ED_ITS ---
<Statement entered by Socorro Ovalle DO - 08/25/24 00:15> I was consulted by the VINNY, and we discussed the complexity of the problems being addressed. I approved the treatment and management plan for this patient's care in the emergency department, thus performing a substantive portion of the medical decision making. Socorro Ovalle DO Discharge Plan Disposition Patient Disposition: Home, Self-Care Prescriptions Prescriptions: No Action naproxen sodium 550 mg tablet 550 mg PO HS PRN (Reason: pain) Qty: 30 2RF metoprolol succinate 25 mg tablet extended release 24 hr 25 mg PO DAILY Qty: 90 1RF ramipril 10 mg capsule 10 mg PO DAILY Qty: 30 11RF Eliquis 5 mg tablet 5 mg PO BID Qty: 60 5RF atorvastatin 20 mg tablet 20 mg PO DAILY Qty: 90 1RF Referrals Follow up/Referrals: Provider,Referral, MD [Referring] - See instructions Activity Restrictions/Add. Instructions Additional Instructions/Restrictions: Today you were evaluated in the emergency department for chest pain. Your cardiac enzymes were negative. Please follow-up with cardiology as we discussed. Please return to the ED for any worsening of your condition. Please monitor your blood pressure closely. Clinical Impressions Clinical Impression: Chest pain Hypertension Qualifiers: Hypertension type: unspecified Qualified Code(s): I10 - Essential (primary) hypertension Stand Alone Forms Stand Alone Forms: Work/School Release Instructions Patient Instructions: DI for Atypical Chest Pain Print Language Print Language: Prydeinig Discharge ED Provider: Shalonda Rizzo [facility] General Chief Complaint: Chest Pain Stated Complaint: chest pain Time Seen by Provider: 08/24/24 14:32 Mode of Arrival: Ambulatory Source of Information: Patient Description of Symptoms (Recalled from ER Triage Doc. by RN): pt is here for left sided chest pain that started yesterday and has not gotten any better, he states he got dizzy and soa and felt like he was going out. History of Present Illness HPI narrative: Patient is a 49-year-old male PMHx CAD (1 cardiac stent on Eliquis), history of SVT, history of A-fib, OSMAR, HLD, HTN, tobacco dependence who presents to the ED with complaints of chest pain, dizziness, chills. Patient states he was having a bowel movement when he had sudden onset cold sweats, dizziness and left-sided chest pain. Related Data Previous Rx's ?Medication ?Instructions ?Recorded naproxen sodium 550 mg tablet 550 mg PO HS PRN pain #30 tabs 02/11/24 metoprolol succinate 25 mg 25 mg PO DAILY #90 tabs 03/26/24 tablet,extended release 24 hr ramipril 10 mg capsule 10 mg PO DAILY #30 caps 04/28/24 apixaban 5 mg tablet (Eliquis) 5 mg PO BID #60 tabs 07/11/24 atorvastatin 20 mg tablet 20 mg PO DAILY High cholesterol 07/29/24 #90 tabs Allergies Allergy/AdvReac Type Severity Reaction Status Date / Time No Known Allergies Allergy Verified 08/24/24 15:08 [facility] Disclaimer: The information contained in this section may have been updated after the patient was seen, as this information can be updated by other users. Medical History SVT (supraventricular tachycardia) Paroxysmal atrial fibrillation Dizziness Abnormality on patient-activated cardiac event recorder Atrial fibrillation by electrocardiogram Stable angina Dyspnea on exertion Angina, class II Cardiomyopathy Abnormal echocardiogram Atypical angina Abnormal cardiovascular stress test HLD (hyperlipidemia) Abnormal EKG Tobacco dependence syndrome Dyspnea Gastroesophageal reflux disease Chest pain Left arm numbness Surgical History Status post fusion of wrist Family History Other Family history of diabetes mellitus type II Family history of myocardial infarction Social History Smoking Status: Current every day smoker tobacco type: cigarettes packs per day: 1 second hand exposure: No alcohol intake: never substance use type: denies use current occupational status: disabled Travel in the last 8 weeks: Inside the [place] household members: spouse housing: house current occupational exposures/hazards: No caffeine: Yes Have you lived/traveled outside [place] in past 30 days?: No Contact w/someone who lives/traveled outside [place] past 30 days?: No Exposure to someone with infectious disease in past 14 days?: No Do you have a fever (greater than 100.4 F or 38 C)?: No Have you tested positive for COVID-19: No Exposed to someone with COVID-19 in past 14 days?: No Do you have a sore throat?: No Do you have a cough?: No Do you have any weakness?: No Do you have any diarrhea?: No Are you experiencing any unusual bleeding?: No Do you have any muscle aches/pain?: No Do you have any abdominal pain?: No Are you experiencing loss of taste or smell?: No Other Medical History Have you received the Flu Vaccine for this season: No Have you received the Pneumonia Vaccine: No ROS Obtained: Yes Systems reviewed as appropriate & no additional complaints except as documented Physical Exam General General appearance: alert and in no apparent distress Head Head exam: atraumatic and normocephalic Eye Eye exam: Present normal appearance and PERRL; Absent nystagmus ENT ENT exam: Present normal exam Neck Neck exam: Present normal inspection Chest Chest inspection: Present normal inspection and symmetric chest wall rise; Absent tenderness Respiratory Respiratory exam: Present normal lung sounds bilaterally Cardiovascular Cardiovascular exam: Present regular rate Abdominal Exam Abdominal exam: Present soft and normal bowel sounds; Absent tenderness Extremities Exam Extremities exam: Present normal inspection and full ROM Back Exam Back exam: Present normal inspection and full ROM; Absent tenderness Neurological Exam Neurological exam: Present alert and oriented X3 Psychiatric Psychiatric exam: Present normal affect and normal mood Skin Skin exam: Present warm and dry HEART Score HEART Score HEART Score assessment performed?: Yes History (anamnesis): Moderately suspicious ECG: Normal Age: 45-65 years Risk factors: 3 or more risk factors Troponin: </= normal limit HEART Score: 4 Critical Care Critical Care Time Critical Care Time: No Medical Decision Making Paul Inquiry Pt receiving controlled substance: No Paul was queried for this patient: No Vital Signs Vital Signs: 08/24/24 14:31 08/24/24 14:32 08/24/24 14:39 Temperature 97.9 F Temperature Source Oral Pulse Rate 78 85 Pulse Rate [Left Radial] 76 Respiratory Rate 17 20 Blood Pressure 179/89 H Blood Pressure [Right Arm] 214/100 H Blood Pressure Mean [Right Arm] 138 02 Sat by Pulse Oximetry 97 98 Oxygen Delivery Method Room Air Room Air 08/24/24 15:01 08/24/24 15:31 08/24/24 16:00 Temperature Temperature Source Pulse Rate 65 60 61 Pulse Rate [Left Radial] Respiratory Rate 20 22 16 Blood Pressure 134/71 143/76 H 128/65 Blood Pressure [Right Arm] Blood Pressure Mean [Right Arm] 02 Sat by Pulse Oximetry 97 96 97 Oxygen Delivery Method Room Air Room Air 08/24/24 16:30 08/24/24 17:30 08/24/24 18:01 Temperature Temperature Source Pulse Rate 56 L 47 L 51 L Pulse Rate [Left Radial] Respiratory Rate 16 18 23 Blood Pressure 129/56 L 140/75 137/69 Blood Pressure [Right Arm] Blood Pressure Mean [Right Arm] 02 Sat by Pulse Oximetry 97 98 96 Oxygen Delivery Method Room Air Room Air 08/24/24 18:40 Temperature 98.2 F Temperature Source Pulse Rate 70 Pulse Rate [Left Radial] Respiratory Rate 20 Blood Pressure 119/70 Blood Pressure [Right Arm] Blood Pressure Mean [Right Arm] 02 Sat by Pulse Oximetry Oxygen Delivery Method Room Air Lab Data Labs: Lab Results 08/24/24 14:32: WBC 8.9, RBC 4.88, Hgb 14.8, Hct 42.7, MCV 87.5, MCH 30.3, MCHC 34.7, RDW 12.3, Plt Count 259, MPV 8.6, Neut % (Auto) 68.4, Lymph % (Auto) 25.0, Cocke % (Auto) 4.7, Eos % (Auto) 1.3, Baso % (Auto) 0.3, Neut # (Auto) 6.1, Lymph # (Auto) 2.2, Cocke # (Auto) 0.4, Eos # (Auto) 0.1, Baso # (Auto) 0.0, D-Dimer 0.74 H, Sodium 137, Potassium 4.0, Chloride 104, Carbon Dioxide 24, Anion Gap 13.0, BUN 9, Creatinine 0.80, Estimated Creat Clear 198, Estimated GFR 102, Est GFR ( Amer) 124, Glucose 188 H, Calcium 8.9, Total Bilirubin 0.4, AST 31, ALT 23, Alkaline Phosphatase 94, Troponin I < 0.01, Total Protein 7.4, Albumin 3.8, Globulin 3.6 H, Albumin/Globulin Ratio 1.1 08/24/24 17:24: Troponin I < 0.01 08/24/24 14:32 08/24/24 14:32 Response Orders (Tests/Meds): ED MEDICATIONS Discontinued Medications Generic Name Dose Route Start Last Admin Trade Name Freq PRN Reason Stop Dose Admin Aspirin 324 mg 08/24/24 14:29 08/24/24 14:33 Aspirin 81mg Chewable Tablet PO 08/24/24 14:30 324 mg ONCE ONE Administration Iopamidol 80 ml 08/24/24 16:58 08/24/24 16:59 Iopamidol-370 (76%);100ml Bottle IV 08/24/24 16:59 80 ml ONCE ONE Administration Nitroglycerin 0.4 mg 08/24/24 14:29 08/24/24 14:50 Nitroglycerin 0.4mg Sl Tablet SL 08/25/24 14:29 0.4 mg Q5MINP PRN Administration Chest Pain Sodium Chloride 50 ml 08/24/24 16:58 08/24/24 16:59 0.9 % Sodium Chloride 50 Ml Vial IV 08/24/24 16:59 50 ml ONCE ONE Administration Sodium Chloride 10 ml 08/24/24 16:58 08/24/24 16:59 Sodium Chloride 0.9% 10ml Syr (Rad Only) IV 09/23/24 16:57 10 ml NEEDED PRN Administration Maintain IV Site ORDERS Category Date Time Status CTA Chest [CT angio chest - dissection] Stat Cat Scan 08/24/24 15:17 Completed CXR --portable [XR chest portable] Stat Exams 08/24/24 14:39 Completed Complete Blood Count Auto Diff Stat Lab 08/24/24 14:32 Completed Comprehensive Metabolic Panel Stat Lab 08/24/24 14:32 Completed D-Dimer Stat Lab 08/24/24 14:32 Completed Troponin I Q3H Lab 08/24/24 17:24 Completed Troponin I Q3H Lab 08/24/24 20:30 Ordered Troponin I Stat Lab 08/24/24 14:32 Completed MDM Narrative Medical Decision Narrative: In summary, patient is a 49-year-old male PMHx CAD (1 cardiac stent on Eliquis), history of SVT, history of A-fib, OSMAR, HLD, HTN, tobacco dependence who presents to the ED with complaints of chest pain, dizziness, chills. Patient states he was having a bowel movement when he had sudden onset cold sweats, dizziness and left-sided chest pain. Patient states he has had intermittent chest pain for the past 3 days, states it ranges from a 2/10 to a 8/10. He states currently his chest pain is a 2/10. Patient states he currently feels anxious. He states he was told when he had a stent placed that he had 3 additional blockages. Denies any history of PE or DVT. Denies any other complaints at this time. Denies any radiation of his chest pain, denies back pain. Differential diagnosis include ACS, dissection, pulmonary embolism, electrolyte abnormality, cardiac arrhythmia, angina, among others. Upon initial evaluation patient is alert, oriented and cooperative. He is hypertensive, states he has taken his blood pressure medication this morning. Physical exam unremarkable. Discussed with patient that we will proceed with hematologic labs, EKG and chest x-ray. Patient given 324 mg aspirin. Records reviewed, cardiology visit from 05/21/2024 which notes that in 2019 patient had a LAD stent, he also had moderate disease in his RCA and left circumflex which were medically managed. Weight management was discussed at this visit. Reviewed hematologic labs, CBC unremarkable for any leukocytosis, stable H&H. CMP unremarkable for any actionable abnormalities. D-dimer 0.74, will proceed with CTA. Troponin < 0.01 . Second troponin <0.01. Final read of the chest x-ray is clear lungs and cardiomegaly. Chest CTA negative for dissection or pulmonary embolism. Upon reassessment, patient states that he is not having any pain at this time. Given this, I feel the patient is safe to be discharged home. He is alert and oriented, remains hemodynamically stable. Blood pressure has significantly improved. Discussed with patient that although workup is unremarkable today he will need follow-up. Patient states he will follow-up with screen printer tomorrow in clinic. Discussed that he will also need to follow-up with his PCP. We discussed return precautions to the ED. Patient verbalized understanding.
[2024-08-24 14:40] LABS: Basophils % 0.3 % (0.1-2.0); Eosinophils # 0.1 Kmm3 (0.0-0.4); Eosinophils % 1.3 % (0.1-12.0); Hematocrit 42.7 % (42.0-52.0); Hemoglobin 14.8 g/dL (14.1-18.0); Lymphocytes # 2.2 K/mm3 (0.7-4.5); Mean Corpuscular HGB Conc 34.7 g/dL (31.8-35.4); Mean Corpuscular Hemoglobin 30.3 pg (27.0-31.2); Mean Corpuscular Volume 87.5 fl (80-94); Mean Platelet Volume 8.6 fl (7.4-10.4); Monocytes # 0.4 K/mm3 (0.1-1.0); Monocytes % 4.7 % (1.7-9.3); Neutrophils # 6.1 K/mm3 (1.8-7.8); Neutrophils % 68.4 % (37.0-80.0); Nucleated Red Blood Cells # 0 10^3/uL; Nucleated Red Blood Cells % 0 %; Platelet Count 259 K/mm3 (142-424); Red Blood Count 4.88 M/mm3 (4.60-6.20); Red Cell Distribution Width 12.3 % (11.5-17.5); Red Cell Distribution Width-SD 39.2 fL; White Blood Count 8.9 K/mm3 (4.8-10.8)
[2024-08-24] MEDS: NITROGLYCERIN 0.4MG SL TABLET 0.4 MG SL (14:50)
[2024-08-24 15:03] LABS: Alanine Aminotransferase 23 U/L (12-78); Albumin Level 3.8 g/dl (3.5-5.0); Albumin/Globulin Ratio 1.1 (1.1-1.8); Alkaline Phosphatase 94 U/L (38-126); Aspartate Amino Transferase 31 U/L (17-59); Bilirubin,Total 0.4 mg/dl (0.2-1.3); Blood Urea Nitrogen 9 mg/dl (9-20); Calcium 8.9 mg/dl (8.4-10.2); Carbon Dioxide 24 mmol/L (22.0-30.0); Chloride 104 mmol/L (98-107); Creatinine Clearance Estimated 198 mL/min (50-200); Estimated Glomerular Filt Rate 102 ml/min (>60); GFR (African American) 124 ML/MIN (>60); Globulin 3.6 g/dL (1.3-3.2); Glucose 188 mg/dl (74-100); Sodium 137 mmol/L (136-145); Total Protein,Serum 7.4 g/dl (6.3-8.2)
--- NOTE | 2024-08-24 15:04 | PC.NURSE ---
per pt nitro did not help releif chest pain however it did help bring down sbp from 170-130
[2024-08-24 15:07] LABS: D-Dimer 0.74 ug/mL (0.0-0.5)
--- NOTE | 2024-08-24 15:17 | CT_ITS ---
PROCEDURE INFORMATION: Exam: CTA Chest With Contrast Exam date and time: 08/24/2024 4:55 PM Age: 49 years old Clinical indication: Pain; Chest pressure; Additional info: Cp TECHNIQUE: Imaging protocol: Computed tomographic angiography of the chest with contrast. Exam focused on the arteries. 3D rendering (Not supervised by radiologist): MIP and/or 3D reconstructed images were created by the technologist. Radiation optimization: All CT scans at this facility use at least one of these dose optimization techniques: automated exposure control; mA and/or kV adjustment per patient size (includes targeted exams where dose is matched to clinical indication); or iterative reconstruction. Contrast material: ISOVUE; Contrast volume: 80 ml; Contrast route: INTRAVENOUS (IV); COMPARISON: CR XR CHEST PORTABLE 08/24/2024 2:43 PM FINDINGS: Pulmonary arteries: Normal. No pulmonary emboli. Aorta: Unremarkable. No aortic aneurysm. No aortic dissection. Lungs: Unremarkable. No consolidation. No masses. Pleural spaces: Unremarkable. No pneumothorax. No pleural effusion. Heart: Unremarkable. No cardiomegaly. No pericardial effusion. Lymph nodes: Unremarkable. No enlarged lymph nodes. Bones/joints: Unremarkable. No acute fracture. Soft tissues: Unremarkable. IMPRESSION: No acute findings.
[2024-08-24 15:33] LABS: Troponin I < 0.01 ng/ml (0.00-0.034)
--- NOTE | 2024-08-24 16:46 | PC.NURSE ---
Called Radiology to check on status of ct read. as it is reported as taken at 1546 . They states pt has NOT been to taken yet. I asked if they needed to call in extras help for obtain scan, and states they will be by soon to take pt.
--- NOTE | 2024-08-24 16:52 | PC.NURSE ---
pt to ct scan at this time via wheelchair
[2024-08-24] MEDS: 0.9 % SODIUM CHLORIDE 50 ML VIAL IV (16:59)
[2024-08-24] MEDS: IOPAMIDOL-370 (76%);100ML BOTTLE 80 ML IV (16:59)
[2024-08-24] MEDS: SODIUM CHLORIDE 0.9% 10ML SYR (RAD ONLY) 10 ML IV (16:59)
--- NOTE | 2024-08-24 17:10 | PC.NURSE ---
Pt back in room
--- NOTE | 2024-08-24 17:25 | PC.NURSE ---
2nd troponin sent to lab, notified lab
[2024-08-24 17:55] LABS: Troponin I < 0.01 ng/ml (0.00-0.034)
== END 2024-08-24 18:41 | disposition home or self-care (01) ==
PROVIDERS: Nurse Practitioner; Emergency Provider Student in an Organized Health Care Education/Training Program; PCP Nurse Practitioner Family
DX: R07.89 Other chest pain (principal); R42 Dizziness and giddiness; I10 Essential (primary) hypertension
CPT/HCPCS: 71045; 71275; 80053; 84484; 85025; 85378; 93005; 99285; Q9967

== ENCOUNTER 2024-08-29 18:10 | Emergency (ER) | payer MEDICAID, SELFPAY ==
[2024-08-29] VITALS (10 sets, daily range): BP systolic 109–186; BP diastolic 59–123; PULSE 47–60; RESP 14–24; TEMP 36.6–37.1; O2SAT 96–97; BMI 35.7
--- NOTE | 2024-08-29 18:08 | ECG_ITS ---
APPROVED REPORT Exam: Resting ECG HR:52 bpm ECG Measurements Heart Rate 52 AXES LA 159 P 32 QRSd 101 QRS 31 QT 415 T 30 QTc 396 Conclusion SINUS BRADYCARDIA No STEMI Electronically signed by : JESSICA OROZCO, 08/29/2024 23:31:41
[2024-08-29 18:48] LABS: Basophils # 0.1 K/mm3 (0-0.2); Basophils % 0.7 % (0.1-2.0); Eosinophils # 0.1 Kmm3 (0.0-0.4); Eosinophils % 1.5 % (0.1-12.0); Hemoglobin 14.1 g/dL (14.1-18.0); Lymphocytes # 2.6 K/mm3 (0.7-4.5); Lymphocytes % 34.7 % (10-50); Mean Corpuscular HGB Conc 35.3 g/dL (31.8-35.4); Mean Corpuscular Hemoglobin 30.7 pg (27.0-31.2); Mean Platelet Volume 8.7 fl (7.4-10.4); Monocytes # 0.5 K/mm3 (0.1-1.0); Monocytes % 7.1 % (1.7-9.3); Neutrophils # 4.1 K/mm3 (1.8-7.8); Neutrophils % 55.9 % (37.0-80.0); Nucleated Red Blood Cells # 0 10^3/uL; Nucleated Red Blood Cells % 0 %; Platelet Count 244 K/mm3 (142-424); Red Cell Distribution Width 12.3 % (11.5-17.5); White Blood Count 7.3 K/mm3 (4.8-10.8)
[2024-08-29] MEDS: ASPIRIN 81MG CHEWABLE TABLET 324 MG PO (18:50)
[2024-08-29] MEDS: BELLADONNA ALKALOIDS 60 ML ML PO (18:50)
[2024-08-29 18:53] LABS: Chloride 106 mmol/L (98-107)
[2024-08-29 18:54] LABS: Potassium 4.1 mmoL/L (3.5-5.1); Sodium 138 mmol/L (136-145)
[2024-08-29 18:56] LABS: Alanine Aminotransferase 28 U/L (12-78); Anion Gap 11.1 mEq/L (5-15); Aspartate Amino Transferase 43 U/L (17-59); Blood Urea Nitrogen 10 mg/dl (9-20); Carbon Dioxide 25 mmol/L (22.0-30.0); Creatinine Clearance Estimated 162 mL/min (50-200); Estimated Glomerular Filt Rate 79 ml/min (>60); GFR (African American) 96 ML/MIN (>60)
[2024-08-29 18:57] LABS: Albumin/Globulin Ratio 1.2 (1.1-1.8); Alkaline Phosphatase 79 U/L (38-126); Bilirubin,Total 0.4 mg/dl (0.2-1.3); Calcium 8.8 mg/dl (8.4-10.2); Globulin 3.4 g/dL (1.3-3.2); Glucose 150 mg/dl (74-100); Total Protein,Serum 7.4 g/dl (6.3-8.2)
[2024-08-29 19:06] LABS: NT Pro Brain Natriuretic Pep. 123 pg/mL (0-125)
[2024-08-29 19:12] LABS: Troponin I < 0.01 ng/ml (0.00-0.034)
--- NOTE | 2024-08-29 19:13 | HMH.EDCP ---
Discharge Plan Disposition Patient Disposition: Home, Self-Care Condition: Good Prescriptions Prescriptions: No Action isosorbide mononitrate 60 mg tablet extended release 24 hr 60 mg PO DAILY Qty: 30 2RF nitroglycerin [Nitrostat] 0.4 mg tablet, sublingual 0.4 mg sublingual Q5M PRN (Reason: chest pain) Qty: 20 0RF Rx Instructions: do not exceed 3 doses per episode metoprolol succinate 25 mg tablet extended release 24 hr 25 mg PO DAILY Qty: 90 1RF ramipril 10 mg capsule 10 mg PO DAILY Qty: 30 11RF Eliquis 5 mg tablet 5 mg PO BID Qty: 60 5RF atorvastatin 20 mg tablet 20 mg PO DAILY Qty: 90 1RF Referrals Follow up/Referrals: Bryan Benito APRN [Primary Care Provider] - See instructions Activity Restrictions/Add. Instructions Additional Instructions/Restrictions: You were evaluated in the emergency department today. Please follow plan to have a cardiac catheterization as an outpatient on Sunday. Return to the emergency department for new or worsening symptoms. Clinical Impressions Clinical Impression: Chest pain Instructions Patient Instructions: DI for Atypical Chest Pain, DI for Chest Pain Print Language Print Language: Slovenian Discharge ED Provider: Socorro Ovalle HPI General Chief Complaint: Chest Pain Stated Complaint: chest pain Time Seen by Provider: 08/29/24 18:19 Mode of Arrival: Ambulatory Source of Information: Patient and Spouse Description of Symptoms (Recalled from ER Triage Doc. by RN): Patient presents to ED with left sided CP rates pain 5/10 at this time. Patient states his BP has increased this evening as well. Patient reports he is scheduled for a heart cath with on Sunday. History of Present Illness HPI narrative: This patient is a 49-year-old male with a history of atrial fibrillation, CAD status post stenting, tobacco dependence, hypertension, hyperlipidemia, GERD, cardiomyopathy presented to the emergency department for evaluation with concern for chest pains. He notes that he has had intermittent chest pain for quite some time, and he is actually scheduled for a heart cath on Sunday for this. He notes that he is on nitro at home but is having a hard time taking this because of side effect such as headaches, nausea, and vomiting. He does state this evening, he felt his blood pressure spike and felt very off. He was having chest pain during this episode, prompting ED evaluation. He notes that cardiology was concerned that if he continued to have chest pain he may need to be admitted when he was previously evaluated by them. He states that he is currently feeling little bit better, as his blood pressure came down a bit after arrival. No other concerns or complaints noted at this time. Related Data Previous Rx's ?Medication ?Instructions ?Recorded metoprolol succinate 25 mg 25 mg PO DAILY #90 tabs 03/26/24 tablet,extended release 24 hr ramipril 10 mg capsule 10 mg PO DAILY #30 caps 04/28/24 apixaban 5 mg tablet (Eliquis) 5 mg PO BID #60 tabs 07/11/24 atorvastatin 20 mg tablet 20 mg PO DAILY High cholesterol 07/29/24 #90 tabs isosorbide mononitrate 60 mg 60 mg PO DAILY #30 tabs 08/25/24 tablet,extended release 24 hr nitroglycerin 0.4 mg sublingual 0.4 mg sublingual Q5M PRN chest 08/25/24 tablet (Nitrostat) pain #20 tabs Allergies Allergy/AdvReac Type Severity Reaction Status Date / Time No Known Allergies Allergy Verified 08/25/24 09:21 [facility] Disclaimer: The information contained in this section may have been updated after the patient was seen, as this information can be updated by other users. Medical History SVT (supraventricular tachycardia) Paroxysmal atrial fibrillation Dizziness Abnormality on patient-activated cardiac event recorder Atrial fibrillation by electrocardiogram Stable angina Dyspnea on exertion Angina, class II Cardiomyopathy Abnormal echocardiogram Atypical angina Abnormal cardiovascular stress test HLD (hyperlipidemia) Abnormal EKG Tobacco dependence syndrome Dyspnea Gastroesophageal reflux disease Chest pain Left arm numbness Surgical History Status post fusion of wrist Family History Other Family history of diabetes mellitus type II Family history of myocardial infarction Social History Smoking Status: Current every day smoker tobacco type: cigarettes packs per day: 1 second hand exposure: No alcohol intake: never substance use type: denies use current occupational status: disabled Travel in the last 8 weeks: Inside the [place] household members: spouse housing: house current occupational exposures/hazards: No caffeine: Yes Have you lived/traveled outside US in past 30 days?: No Contact w/someone who lives/traveled outside US past 30 days?: No Exposure to someone with infectious disease in past 14 days?: No Do you have a fever (greater than 100.4 F or 38 C)?: No Have you tested positive for COVID-19: No Exposed to someone with COVID-19 in past 14 days?: No Do you have a sore throat?: No Do you have a cough?: No Do you have any weakness?: No Do you have any diarrhea?: No Are you experiencing any unusual bleeding?: No Do you have any muscle aches/pain?: No Do you have any abdominal pain?: No Are you experiencing loss of taste or smell?: No Other Medical History Have you received the Flu Vaccine for this season: No Have you received the Pneumonia Vaccine: No ROS Obtained: Yes All systems reviewed & no additional complaints except as documented Physical Exam General General appearance: alert and in no apparent distress Head Head exam: atraumatic and normocephalic Eye Eye exam: Present normal appearance, PERRL and EOMI ENT ENT exam: Present normal exam, normal oropharynx, mucous membranes moist and normal external ear exam Neck Neck exam: Present normal inspection, full ROM and trachea midline; Absent tenderness Chest Chest inspection: Present normal inspection and symmetric chest wall rise; Absent tenderness Respiratory Respiratory exam: Present normal lung sounds bilaterally; Absent respiratory distress, wheezes, stridor or accessory muscle use Cardiovascular Cardiovascular exam: Present regular rate and normal rhythm Abdominal Exam Abdominal exam: Present soft; Absent distention, tenderness or guarding Extremities Exam Extremities exam: Present normal inspection, full ROM and normal capillary refill; Absent tenderness or edema Back Exam Back exam: Present normal inspection and full ROM; Absent tenderness Neurological Exam Neurological exam: Present alert, oriented X3, CN II-XII intact and normal gait; Absent motor sensory deficit Psychiatric Psychiatric exam: Present normal affect and normal mood Skin Skin exam: Present warm and dry HEART Score HEART Score HEART Score assessment performed?: Yes History (anamnesis): Slightly suspicious ECG: Normal Age: 45-65 years Risk factors: Atherosclerosis history Troponin: </= normal limit HEART Score: 3 Critical Care Critical Care Time Critical Care Time: No Medical Decision Making Paul Inquiry Pt receiving controlled substance: No Vital Signs Vital Signs: 04/25/25 18:14 08/29/24 18:20 08/29/24 19:01 Temperature 98.8 F Temperature Source Oral Pulse Rate 54 L 51 L Pulse Rate [Right Brachial] 54 L Respiratory Rate 20 19 Blood Pressure 123/73 Blood Pressure [Right Arm] 186/123 H Blood Pressure Mean Blood Pressure Mean [Right Arm] 144 Blood Pressure Source Blood Pressure Source [Right Arm] Automatic Cuff Blood Pressure Position Blood Pressure Position [Right Arm] Supine 02 Sat by Pulse Oximetry 96 96 Oxygen Delivery Method Room Air 08/29/24 19:31 08/29/24 20:01 08/29/24 20:31 Temperature Temperature Source Pulse Rate 47 L 48 L 47 L Pulse Rate [Right Brachial] Respiratory Rate 14 19 23 Blood Pressure 117/68 109/59 L 119/64 Blood Pressure [Right Arm] Blood Pressure Mean Blood Pressure Mean [Right Arm] Blood Pressure Source Blood Pressure Source [Right Arm] Blood Pressure Position Blood Pressure Position [Right Arm] 02 Sat by Pulse Oximetry 96 97 96 Oxygen Delivery Method 08/29/24 21:01 08/29/24 21:31 08/29/24 22:01 Temperature Temperature Source Pulse Rate 51 L 51 L 49 L Pulse Rate [Right Brachial] Respiratory Rate 24 20 14 Blood Pressure 126/71 115/76 116/65 Blood Pressure [Right Arm] Blood Pressure Mean 89 Blood Pressure Mean [Right Arm] Blood Pressure Source Blood Pressure Source [Right Arm] Blood Pressure Position Blood Pressure Position [Right Arm] 02 Sat by Pulse Oximetry 96 97 96 Oxygen Delivery Method Room Air 08/29/24 22:19 Temperature 97.9 F Temperature Source Oral Pulse Rate 60 Pulse Rate [Right Brachial] Respiratory Rate 16 Blood Pressure 110/74 Blood Pressure [Right Arm] Blood Pressure Mean Blood Pressure Mean [Right Arm] Blood Pressure Source Automatic Cuff Blood Pressure Source [Right Arm] Blood Pressure Position Supine Blood Pressure Position [Right Arm] 02 Sat by Pulse Oximetry Oxygen Delivery Method Room Air Lab Data Labs: Lab Results 08/29/24 18:14: WBC 7.3, RBC 4.60, Hgb 14.1, Hct 40.0 L, MCV 87.0, MCH 30.7, MCHC 35.3, RDW 12.3, Plt Count 244, MPV 8.7, Neut % (Auto) 55.9, Lymph % (Auto) 34.7, [place] % (Auto) 7.1, Eos % (Auto) 1.5, Baso % (Auto) 0.7, Neut # (Auto) 4.1, Lymph # (Auto) 2.6, [place] # (Auto) 0.5, Eos # (Auto) 0.1, Baso # (Auto) 0.1, Sodium 138, Potassium 4.1, Chloride 106, Carbon Dioxide 25, Anion Gap 11.1, BUN 10, Creatinine 1.00, Estimated Creat Clear 162, Estimated GFR 79, Est GFR ( Amer) 96, Glucose 150 H, Calcium 8.8, Total Bilirubin 0.4, AST 43, ALT 28, Alkaline Phosphatase 79, Troponin I < 0.01, NT-Pro-B Natriuret Pep 123, Total Protein 7.4, Albumin 4.0, Globulin 3.4 H, Albumin/Globulin Ratio 1.2 08/29/24 21:14: Troponin I < 0.01 08/29/24 18:14 08/29/24 18:14 Response Orders (Tests/Meds): ED MEDICATIONS Discontinued Medications Generic Name Dose Route Start Last Admin Trade Name Freq PRN Reason Stop Dose Admin Aspirin 324 mg 08/29/24 18:42 08/29/24 18:50 Aspirin 81mg Chewable Tablet PO 08/29/24 18:43 324 mg ONCE ONE Administration Belladonna Alkaloids 60 ml 08/29/24 18:43 08/29/24 18:50 Belladonna Alkaloids 60 Ml Ml PO 08/29/24 18:44 60 ml ONCE ONE Administration ORDERS Category Date Time Status CXR --portable [XR chest portable] Stat Exams 08/29/24 19:18 Completed BNP [NT Pro Brain Natriuretic Pep.] Stat Lab 08/29/24 18:14 Completed Complete Blood Count Auto Diff Stat Lab 08/29/24 18:14 Completed Comprehensive Metabolic Panel Stat Lab 08/29/24 18:14 Completed Trop I [Troponin I] Stat Lab 08/29/24 18:14 Completed Troponin I Q3H Lab 08/29/24 21:14 Completed ECG Data Tracing #1: Attestation: I reviewed this ECG and interpreted as documented below: ECG Narrative: Sinus bradycardia with a ventricular to [address] changes concerning for ischemia. Normal intervals ECG initial impression date: 08/29/24 ECG initial impression time: 18:12 MDM Narrative Medical Decision Narrative: In summary, this patient is a 49-year-old male presenting to the Emergency Department for evaluation of chest pain and high blood pressure. Differential diagnoses considered include but are not limited to hypertensive urgency, hypertensive emergency, anxiety, ACS, unstable angina. Ruling out the most morbid conditions drove assessment. It should be noted patient's history includes extensive cardiovascular history which may or may not be at goal therapy. This complicates all aspects of care by increasing patient's risk for morbidity. I reviewed patient's past medical records and noted prior cardiology evaluations and scheduled for outpatient cardiac catheterization on Sunday. On exam, the patient is lying in bed in no acute distress with reassuring vital signs on cardiac telemetry. Heart rate is in the 50s in the setting of beta-blockade.blood pressure initially was elevated with systolics in the 180s, however after he was lying in bed comfortably for a brief period of systolic did spontaneously improved to the 150s. Cardiopulmonary exam is reassuring. Workup included CBC, CMP, troponins, chest x-ray, EKG. He was given oral aspirin and GI cocktail for symptomatic improvement. I independently interpreted chest x-ray prior to the radiologist read and noted no focal consolidation, no pneumothorax. Please see their read for final interpretation. Labs were obtained that demonstrated reassuring CBC with no significant leukocytosis or anemia, chemistries reassuring with normal kidney function, initial troponin negative. I had an interactive discussion with Dr. Goldberg who advised that if the patient's troponins are negative, he can proceed with plan for outpatient catheterization. At 1999, patient was placed in ED observation status pending second troponin to determine whether or not the patient would be appropriate for discharge versus admission. The patient was provided serial reevaluations and cardiac monitoring while awaiting ultimate disposition. On multiple subsequent reassessments, the patient is resting comfortably and is feeling better. Vitals are normal on cardiac telemetry and blood pressure continue to downtrend to 1 teens systolic. Second troponin resulted and is negative. Given reassuring workup and exam, it is felt that the patient is appropriate for discharge at 5. Total ED observation time was 2 hours and 15 minutes. He was given instructions to proceed with catheterization Sunday as planned and given strict return precautions. I had a [id number] visit with the patient when providing discharge instructions. The total time involved in discharging this patient was less than 30 minutes.
--- NOTE | 2024-08-29 19:18 | XR_ITS ---
PROCEDURE INFORMATION: Exam: XR Chest Exam date and time: 08/29/2024 7:27 PM Age: 49 years old Clinical indication: Pain; Chest pressure; Additional info: Chest pain TECHNIQUE: Imaging protocol: Radiologic exam of the chest. Views: 1 view. COMPARISON: CT ANGIO CHEST 08/24/2024 4:55 PM FINDINGS: Lungs: Lung volumes are mildly diminished. The lungs appear clear. No focal areas of consolidation. Pleural spaces: No pleural effusions. Negative for pneumothorax. Heart/Mediastinum: Cardiac silhouette and pulmonary vasculature are within range of normal. Bones/joints: There is no evidence of acute fracture. IMPRESSION: Negative for an acute cardiopulmonary abnormality.
[2024-08-29 21:39] LABS: Troponin I < 0.01 ng/ml (0.00-0.034)
== END 2024-08-29 22:20 | disposition home or self-care (01) ==
PROVIDERS: Emergency Provider Emergency Medicine; PCP Nurse Practitioner Family
DX: R07.89 Other chest pain (principal); R00.1 Bradycardia, unspecified; I10 Essential (primary) hypertension
CPT/HCPCS: 71045; 80053; 83880; 84484; 85025; 93005; 99285

== ENCOUNTER 2024-09-01 07:50 | Day surgery (SDC) | payer MEDICAID, SELFPAY ==
[2024-09-01] VITALS (11 sets, daily range): BP systolic 131–156; BP diastolic 70–100; PULSE 49–70; RESP 16–20; TEMP 36.8; O2SAT 91–98; BMI 35.9
--- NOTE | 2024-09-01 07:09 | IR_ITS ---
APPROVED REPORT Patient Location: Outpatient PROCEDURES Left heart catheterization Left ventriculogram Selective coronary angiogram INDICATION Known coronary artery disease, Crescendo angina Informed consent was obtained prior to the procedure. COMPLICATIONS NONE Estimated Blood Loss: LESS THAN 10 ML TECHNIQUE One percent lidocaine used to anesthetize the right anterior aspect of the wrist. The right radial artery was accessed via the Seldinger technique. A 6 English sheath was placed in the right radial artery. 2.5 mg of Verapamil, 800 mcg of nitroglycerin, 1mg Lidocaine and 5000 U Heparin were given through the arterial sheath. The 6 English JL 3 catheter was also used to perform left heart catheterization, left ventriculogram and selective coronary angiogram. At the end of the procedure the sheath was removed good hemostasis was achieved using Traclet band, patient was transferred to the postop holding area in stable condition. ANGIOGRAPHIC RESULTS The left main artery Normal The left anterior descending artery Has a stent in the proximal to mid segment which is widely patent with minimal in-stent restenosis and excellent proximal distal transitioning. There is no angiographic evidence of flow-limiting jailing of the diagonal artery The circumflex artery Widely patent with minimal luminal regularities The right coronary artery Dominant with proximal 10 to 20% luminal regularities and distal 10% luminal regularities The SUTTON ventriculogram reveals Normal 65% The left ventricular end-diastolic pressure 15 mmHg IMPRESSION Widely patent coronary arteries as described above Normal ejection fraction Normal LVEDP PLAN 1. Evaluation of noncardiac chest pain 2. Will add Ranexa 500 twice daily with recommendation to uptitrate as an outpatient. This will be started in the event patient is experiencing endothelial dysfunction or microvascular ischemia 3. Continue risk factor modification Electronically signed by : Ángel Goldberg MD 09/01/2024 10:06:45
[2024-09-01 08:21] LABS: Basophils % 0.4 % (0.1-2.0); Eosinophils # 0.1 Kmm3 (0.0-0.4); Eosinophils % 0.9 % (0.1-12.0); Hematocrit 43.6 % (42.0-52.0); Hemoglobin 15.3 g/dL (14.1-18.0); Lymphocytes % 19.5 % (10-50); Mean Corpuscular HGB Conc 35.1 g/dL (31.8-35.4); Mean Corpuscular Hemoglobin 30.5 pg (27.0-31.2); Mean Platelet Volume 8.6 fl (7.4-10.4); Monocytes # 0.5 K/mm3 (0.1-1.0); Monocytes % 4.8 % (1.7-9.3); Neutrophils # 7.5 K/mm3 (1.8-7.8); Neutrophils % 74.1 % (37.0-80.0); Nucleated Red Blood Cells # 0 10^3/uL; Nucleated Red Blood Cells % 0 %; Platelet Count 239 K/mm3 (142-424); Red Blood Count 5.01 M/mm3 (4.60-6.20); Red Cell Distribution Width 12.3 % (11.5-17.5); White Blood Count 10.1 K/mm3 (4.8-10.8)
[2024-09-01 08:47] LABS: Blood Urea Nitrogen 11 mg/dl (9-20); Calcium 8.9 mg/dl (8.4-10.2); Carbon Dioxide 24 mmol/L (22.0-30.0); Chloride 109 mmol/L (98-107); Creatinine Clearance Estimated 181 mL/min (50-200); Estimated Glomerular Filt Rate 89 ml/min (>60); GFR (African American) 108 ML/MIN (>60); Glucose 112 mg/dl (74-100); Sodium 138 mmol/L (136-145)
[2024-09-01] MEDS: LIDOCAINE 1% 10ML MDV 10 ML IJ (09:33)
[2024-09-01] MEDS: 0.9 % SODIUM CHLORIDE 500 ML 25 ML IV ×2 (09:33→09:43)
[2024-09-01] MEDS: HEPARIN 1,000 UNITS/500ML NS (CATH LAB) 3000 UNIT IV (09:33)
[2024-09-01] MEDS: HEPARIN 1,000 UNITS/ML 10ML VIAL (CATH LAB) 5000 UNIT IV (09:33)
[2024-09-01] MEDS: VERAPAMIL 2.5MG/ML 2ML VIAL 2.5 MG IV (09:34)
[2024-09-01] MEDS: diphenhydrAMINE 50MG/ML VIAL 50 MG IV (09:38)
[2024-09-01] MEDS: MIDAZOLAM HCL 1MG/ML 5ML VIAL 1 MG IV (09:39)
[2024-09-01] MEDS: FENTANYL 100MCG/2ML VIAL 50 MCG IV (09:40)
[2024-09-01] MEDS: NITROGLYCERIN 800MCG/8ML SYR (CATH LAB) 800 MCG IA (09:43)
[2024-09-01] MEDS: IOPAMIDOL-370 (76%);100ML BOTTLE 80 ML IV (13:11)
== END 2024-09-01 12:42 | disposition home or self-care (01) ==
PROVIDERS: PCP Nurse Practitioner Family; Visit Provider Internal Medicine
DX: I25.118 Atherosclerotic heart disease of native coronary artery with other forms of angina pectoris (principal); I48.0 Paroxysmal atrial fibrillation; I42.9 Cardiomyopathy, unspecified; E78.5 Hyperlipidemia, unspecified; F17.210 Nicotine dependence, cigarettes, uncomplicated; Z79.01 Long term (current) use of anticoagulants; R07.89 Other chest pain; Z82.49 Family history of ischemic heart disease and other diseases of the circulatory system; G47.33 Obstructive sleep apnea (adult) (pediatric)
CPT/HCPCS: 80048; 85025; 93458; 99152; C1725; C1769; J1200; J1644; J3010; Q9967

== ENCOUNTER 2024-10-29 13:27 | Outpatient (CLI) | payer MEDICAID, SELFPAY ==
--- NOTE | 2024-10-29 13:30 | CT_ITS ---
FINAL REPORT CLINICAL HISTORY: lung cancer screening smoker 1/2 ppd, 33 years cad, chf COMPARISON: CTA of the chest 08/24/2024 FINDINGS: CT CHEST LOW DOSE SCREENING 49-year-old male, current smoker, 60-wevo-prvh history HISTORY: Screening exam for lung cancer. DOSE: CTDI vol: 2.90 mGy, DLP: 106.55 mGy*cm TECHNIQUE: Axial CT without IV contrast administration using low dose protocol. This study was performed with techniques to keep radiation doses as low as reasonably achievable, (ALARA). Individualized dose reduction techniques using automated exposure control or adjustment of mA and/or kV according to the patient's size were employed. No acute lung disease is present. No pulmonary lesions are seen suspicious for neoplasm. There is evidence of old calcified granulomatous disease. No pleural or pericardial effusion is seen. No adenopathy or mass lesion is present. IMPRESSION: No evidence of lung cancer LUNG RADS CATEGORY 1 RECOMMENDATION: 12 month LDCT follow up Reviewed, Interpreted and Dictated by Dexter Farley MD Transcribed by Xochitl Marion Authenticated and [facility]
--- OUTSIDE RECORDS SUMMARY | 2024-10-29 13:31 | XMS_ITS | Encounter Summary ---
Author Organization Healthcare Address [address] [id number] Care Team Providers Care Pressure Test Operator Name Role Phone Bryan Benito APRN Primary Care Provider [phone] Encounter Details Date Type Department Care Team (Late st Contact Info) Description 09/01/2021 Orders Only External Location [address] [place] [address] Provider, External Social History Tobacco Use Types Packs/Day Years Used Date Smoking Tobacco: Never Assessed Sex and Gender Information Value Date Recorded Sex Assigned at Not on file Legal Sex Male 6:08 PM EDT Gender Identity Not on file Sexual Orientation Not on file documented as of this encounter Plan of Treatment Not on file documented as of this encounter Procedures Procedure Name Priority Date/Time Associated Diagnosis Comments XR OUTSIDE IMAGES 09/01/2021 12:45 PM EDT documented in this encounter Results * XR OUTSIDE IMAGES (09/01/2021 12:45 PM EDT) Anatomical Region Laterality Modality Radiographic Mer ging 09/01/2021 12:4 5 PM EDT us External Provider IMG XR PROCEDURES Final Result documented in this encounter Visit Diagnoses Not on filedocumented in this encounter Care Teams Pressure Test Operator Relationship Specialty Start Date End Date Bryan Benito APRN [address] [place] [address] PCP - General 12/26/21 documented as of this encounter
--- OUTSIDE RECORDS SUMMARY | 2024-10-29 13:31 | XMS_ITS | Clinical Summary ---
Author Organization Healthcare Address [address] [id number] Care Team Providers Care Floor Renovator Name Role Phone Bryan Benito RILEY Primary Care Provider [phone] Allergies No known active allergies Medications Aspirin Low Dose 81 MG EC tablet TAKE 1 TABLET BY MOUTH DAILY FOR HEART DISEASE 2 Active atorvastatin (Lipitor) 20 MG tablet TAKE 1 TABLET BY MOUTH DAILY FOR HIGH CHOLESTEROL 2 Active bisoprolol (Zebeta) 5 MG tablet Take 1 tablet (5 mg) by mouth 1 (one) time each day. 2 Active clopidogrel (Plavix) 75 MG tablet TAKE 1 TABLET BY MOUTH DAILY FOR BLOOD THINNER 2 Active ramipril (Altace) 2.5 MG capsule TAKE 1 CAPSULE BY MOUTH DAILY FOR HIGH BLOOD PRESSURE 2 Active naproxen (Naprosyn) 500 MG tablet Take 500 mg by mouth 2 (two) times a day with meals. 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 Obesity (BMI 35.0-39.9 without comorbidity) 12/06 Immunizations Immunization Administration Dates Next Due Influenza, seasonal, injectable 06/22/2012 Family History Medical History Relation Name Comments Diabetes Brother Diabetes Mother Heart disease Mother Relation Name Status Comments Brother Mother Social History Tobacco Use Types Packs/Day Years Used Date Smoking Tobacco: Every Day Cigarettes Smokeless Tobacco: Never Tobacco Cessation:Ready to Q uit: Not Asked; Counseling Given: Not Answered Alcohol Use Standard Drinks/Week Comments Never 0 (1 standard drink = 0.6 oz pur e alcohol) PHQ-2 Answer Date Recorded Patient Health Questionnaire-2 Score 0 05/25/2023 Sex and Gender Information Value Date Recorded Sex Assigned at Not on file Legal Sex Male 6:08 PM EDT Gender Identity Not on file Sexual Orientation Not on file Last Filed Vital Signs Vital Sign Reading Time Taken Comments Blood Pressure 122/83 05/14/2023 9:56 AM EST Pulse 60 05/14/2023 9:56 AM EST Temperature 36.4 C (97.5 F) 07/31/2022 9:46 AM EDT Respiratory Rate 18 03/26/2023 10:52 AM EST Oxygen Saturation 97% 05/14/2023 9:56 AM EST Inhaled Oxygen Concentration - - Weight 132 kg (290 lb) 05/25/2023 11:18 AM EST Height 190.5 cm (6' 3 ) 05/25/2023 11:18 AM EST Body Mass Index 36.25 05/25/2023 11:18 AM EST Plan of Treatment Health Maintenance Due Date Last Done Comments [facility]-HIV Screening 1974 [facility]-Hepatitis C Screening 1974 [facility]-/Child/Adol SDOH Screenings 1974 [facility]- SDOH Screenings 02/06/1992 [facility]-Adult SDOH Screenings 02/06/1992 [facility]-DTaP,Tdap,and Td Vaccines (3 - Tdap) 1993 12/16/1979, 12/05/1978, 05/07/1978, Additional history exists [facility]-Hepatitis B Vaccines (1 of 3 - 19+ 3-dose series) 1993 CT Colonography 2019 Colonoscopy 2019 FIT-DNA 2019 FIT 2019 FOBT 2019 Sigmoidoscopy 2019 [facility]-Colorectal Cancer Screening 2019 [id number] Vaccine ( - 2023- season) 2024 [facility]-Pneumococcal Vaccine: 50+ Years (1 of 1 - PCV) 02/06/2024 [facility]-Zoster Vaccines (1 of 2) 02/06/2024 [facility]-Depression Screening 05/25/2024 05/25/2023 [facility]-Influenza Vaccine (Season Ended) 2025 06/22/2012 [facility]-IPV Vaccines Aged Out 12/16/1979, , 12/13/1978 No longer eligible based on patient's age to complete this topic [facility]-Obesity Intervention Completed 024, 05/14/2023, 03/26/2023, Additional history exists HPV Vaccines Aged Out No longer eligi ble based on patient's age to complete this topic [facility]-HIB Vaccines Aged Out No longer e ligible based on patient's age to complete this topic [facility]-Hepatitis A Vaccines Aged Out No longer eligible based on patient's age to complete this topic [facility]-Rotavirus Vaccines Aged Out No lo nger eligible based on patient's age to complete this topic Insurance [facility] MEDICAID Care Teams Floor Renovator Relationship Specialty Start Date End Date Bryan Benito APRN [address] [place] [address] JORDEN Stuart [address] PCP - General 12/26/21
== END 2024-10-29 23:59 | disposition home or self-care (01) ==
LOC: RAD 13:28
PROVIDERS: PCP Nurse Practitioner Family; Visit Provider Nurse Practitioner Family
DX: F17.200 Nicotine dependence, unspecified, uncomplicated (principal); Z12.2 Encounter for screening for malignant neoplasm of respiratory organs
CPT/HCPCS: 71271

== ENCOUNTER 2024-12-30 12:15 | Outpatient (CLI) | payer MEDICAID, SELFPAY ==
--- OUTSIDE RECORDS SUMMARY | 2024-12-30 12:18 | XMS_ITS | Clinical Summary ---
Author Organization Healthcare Address [address] [id number] Care Team Providers Care Vamp Liner Name Role Phone Bryan Benito RILEY Primary Care Provider [phone] Allergies No known active allergies Medications Aspirin [...] [facility]-HIV Screening 1974 [facility]-Hepatitis C Screening 1974 [facility]-Infant/Child/Adol SDOH Screenings 1974 [facility]- SDOH Screenings 02/06/1992 [facility]-Adult SDOH Screenings 02/06/1992 [facility]-DTaP,Tdap,and Td Vaccines (3 - Tdap) 1993 12/16/1979, 12/05/1978, 05/07/1978, Additional history exists [facility]-Hepatitis B Vaccines (1 of 3 - 19+ 3-dose series) 1993 CT Colonography 2019 Colonoscopy 2019 FIT-DNA 2019 FIT 2019 FOBT 2019 Sigmoidoscopy 2019 [facility]-Colorectal Cancer Screening 2019 [id number] Vaccine (1 - 2023-25 season) 2024 [facility]-Pneumococcal Vaccine: 50+ Years (1 of 1 - PCV) 02/06/2024 [facility]-Zoster Vaccines (1 of 2) 02/06/2024 [facility]-Depression Screening 05/25/2024 05/25/2023 [facility]-Influenza Vaccine (#1) 2025 06/22/2012 [facility]-IPV Vaccines Aged Out 12/16/1979, [...] patient's age to complete this topic Insurance [facility] MEDICAID Care Teams Vamp Liner Relationship Specialty Start Date End Date Bryan Benito APRN [address] [place] [address] JORD[place] Stuart [address] PCP - General 12/26/21
--- OUTSIDE RECORDS SUMMARY | 2024-12-30 12:18 | XMS_ITS | Encounter Summary ---
Author Organization Healthcare Address [address] [id number] Care Team Providers Care Fruit Thinner Name Role Phone Bryan Benito APRN Primary Care Provider [phone] Encounter Details Date Type Department Care Team (Late st Contact Info) Description 09/01/2021 Orders Only External Location [address] [place] [address] Provider, External Social History Tobacco Use Types [...] on filedocumented in this encounter Care Teams Fruit Thinner Relationship Specialty Start Date End Date Bryan Benito APRN [address] [place] [address] PCP - General 12/26/21 documented as of this encounter
[2024-12-30 12:34] LABS: Hematocrit 42.9 % (42.0-52.0); Hemoglobin 14.6 g/dL (14.1-18.0); Immature Granulocytes % 0.2 %; Mean Corpuscular HGB Conc 34.0 g/dL (31.8-35.4); Mean Corpuscular Hemoglobin 30.3 pg (27.0-31.2); Mean Corpuscular Volume 89.0 fl (80-94); Nucleated Red Blood Cells % 0 %; Platelet Count 229 K/mm3 (142-424); Red Blood Count 4.82 M/mm3 (4.60-6.20); Red Cell Distribution Width-SD 41.6 fL; White Blood Count 5.9 K/mm3 (4.8-10.8)
[2024-12-30 13:18] LABS: Chloride 109 mmol/L (98-107)
[2024-12-30 13:19] LABS: Albumin Level 4.3 g/dl (3.5-5.0); Potassium 4.6 mmoL/L (3.5-5.1); Sodium 140 mmol/L (136-145)
[2024-12-30 13:21] LABS: Blood Urea Nitrogen 11 mg/dl (9-20); Creatinine,Serum 0.90 mg/dl (0.66-1.25); Estimated Glomerular Filt Rate 89 ml/min (>60); GFR (African American) 108 ML/MIN (>60)
[2024-12-30 13:22] LABS: Alanine Aminotransferase 17 U/L (12-78); Alkaline Phosphatase 83 U/L (38-126); Anion Gap 11.6 mEq/L (5-15); Aspartate Amino Transferase 31 U/L (17-59); Bilirubin,Direct 0.1 mg/dl (0.0-0.4); Bilirubin,Indirect 0.3 mg/dL (0.0-0.9); Bilirubin,Total 0.4 mg/dl (0.2-1.3); Bilirubin,Unconjugated 0.3 mg/dL (0.0-1.1); Calcium 9.0 mg/dl (8.4-10.2); Carbon Dioxide 24 mmol/L (22.0-30.0); Cholesterol 146 mg/dl (140-200); Glucose 134 mg/dl (74-100); Magnesium 1.8 mg/dl (1.6-2.3); Total Protein,Serum 7.1 g/dl (6.3-8.2); Triglycerides 230 mg/dl (30-150)
[2024-12-30 13:23] LABS: HDL Cholesterol 27 mg/dl (40-60)
[2024-12-30 13:37] LABS: Free T4 (Free Thyroxine) 1.17 ng/dl (0.78-2.19)
[2024-12-30 13:52] LABS: Thyroid Stimulating Hormone 2.57 uIU/mL (0.465-4.68)
== END 2024-12-30 23:59 | disposition home or self-care (01) ==
LOC: LAB 12:16
PROVIDERS: PCP Nurse Practitioner Family; Visit Provider Physician Assistant
DX: I25.10 Atherosclerotic heart disease of native coronary artery without angina pectoris (principal); E78.5 Hyperlipidemia, unspecified; R42 Dizziness and giddiness
CPT/HCPCS: 36415; 80048; 80061; 80076; 83735; 84439; 84443; 85025

== ENCOUNTER 2025-01-18 19:27 | Emergency (ER) | payer MEDICAID, SELFPAY ==
[2025-01-18 19:41] VITALS: BP 193/103; PULSE 64; RESP 16; TEMP 36.8; O2SAT 100; BMI 36.6
--- OUTSIDE RECORDS SUMMARY | 2025-01-18 19:51 | XMS_ITS | Encounter Summary ---
Author Organization Healthcare Address [address] [id number] Care Team Providers Care Deputy Chief Sheriff Name Role Phone Bryan Benito APRN Primary Care Provider [phone] Encounter Details Date Type Department Care Team (Late st Contact Info) Description 09/01/2021 Orders Only External Location [address] [place] [address] Provider, External Social History Tobacco Use Types [...] on filedocumented in this encounter Care Teams Deputy Chief Sheriff Relationship Specialty Start Date End Date Bryan Benito APRN [address] [place] [address] PCP - General 12/26/21 documented as of this encounter
--- OUTSIDE RECORDS SUMMARY | 2025-01-18 19:51 | XMS_ITS | Clinical Summary ---
Author Organization Healthcare Address [address] [id number] Care Team Providers Care Search Engine Optimization Strategist Name Role Phone Bryan Benito RILEY Primary Care Provider [phone] Allergies No known active allergies Medications Aspirin [...] 2019 Sigmoidoscopy 2019 [facility]-Colorectal Cancer Screening 2019 [facility]-Pneumococcal Vaccine: 50+ Years (1 of 1 - PCV) 02/06/2024 [facility]-Zoster Vaccines (1 of 2) 02/06/2024 [facility]-Depression Screening 05/25/2024 05/25/2023 [id number] Vaccine (1 - 2023- season) 2025 [facility]-Influenza Vaccine (#1) 2025 06/22/2012 [facility]-IPV Vaccines [...] patient's age to complete this topic Insurance [facility] MEDICAID Care Teams Search Engine Optimization Strategist Relationship Specialty Start Date End Date Bryan Benito APRN [address] [place] [address] [place] [address] PCP - General 12/26/21
--- NOTE | 2025-01-18 19:57 | ED_ITS ---
<Statement entered by Anatoliy Elizalde MD - 01/18/25 23:31> I was consulted by the VINNY, and we discussed the complexity of the problems being addressed. I approved the treatment and management plan for this patient's care in the emergency department, thus performing a substantive portion of the medical decision making. Anatoliy Elizalde MD Discharge Plan Disposition Patient Disposition: Home, Self-Care Prescriptions Prescriptions: No Action (DME) BinaxNOW COVID-19 Ag Self Test Kit See Rx Instructions .ROUTE .MEDSUPPLY Qty: 1 Patient Comments: TEST DIRECTED TODAY Rx Instructions: As directed atorvastatin 40 mg tablet 40 mg PO DAILY Qty: 90 1RF valsartan 320 mg tablet 320 mg PO DAILY Qty: 30 2RF nitroglycerin [Nitrostat] 0.4 mg tablet, sublingual 0.4 mg sublingual Q5M PRN (Reason: chest pain) Qty: 20 0RF Rx Instructions: do not exceed 3 doses per episode metoprolol succinate 25 mg tablet extended release 24 hr 25 mg PO DAILY Qty: 90 3RF Eliquis 5 mg tablet 5 mg PO BID Qty: 60 5RF ranolazine 500 mg tablet extended release 12 hr 500 mg PO BID 30 Days Qty: 60 3RF Referrals Follow up/Referrals: Bryan Benito APRN [Primary Care Provider, Family Practice] - See instructions Activity Restrictions/Add. Instructions Additional Instructions/Restrictions: Today you were evaluated in the emergency department, you have asymptomatic hypertension. Please monitor your blood pressure closely. Please keep your follow-up appointment with your supervisor fiber locking. If you go home and anything changes, your condition worsens please return to the ED immediately. Clinical Impressions Clinical Impression: Asymptomatic hypertension Instructions Patient Instructions: High Blood Pressure Print Language Print Language: Citizen Of [place] Discharge ED Provider: Anatoliy Elizalde General Adult HPI <Liliane Olsen APRN - Last Filed: 01/18/25 20:59> General Chief complaint: Arrhythmia/Palpitations Stated complaint: high blood pressure Time Seen by Provider: 01/18/25 19:57 Mode of Arrival: Ambulatory Source of Information: Patient Description of Symptoms (Recalled from ER Triage Doc. by RN): patient presented to the ED for high blood pressure. patient noticed it today while at [facility] and wanted to check it. his BP was 207/110 History of Present Illness HPI narrative: patient is a 49-year-old male with significant PMH of hypertension, history of SVT, history of paroxysmal A-fib, CAD, cardiomyopathy, HLD who presents to the ED for concern of elevated blood pressure. Patient states that he had a new blood pressure machine at home, took his blood pressure which was systolic in the 180s tonight. Patient states he took his blood pressure 3 times, last time was a systolic of 160 which he reports is normal for him. Related Data Home Medications ?Medication ?Instructions ?Recorded ?Confirmed COVID-19 antigen test (BinaxNOW #1 ea 09/08/24 5 COVID-19 Ag Self Test kit) Previous Rx's ?Medication ?Instructions ?Recorded nitroglycerin 0.4 mg sublingual 0.4 mg sublingual Q5M PRN chest 08/25/24 tablet (Nitrostat) pain #20 tabs metoprolol succinate 25 mg 25 mg PO DAILY #90 tabs tablet,extended release 24 hr apixaban 5 mg tablet (Eliquis) 5 mg PO BID #60 tabs ranolazine 500 mg tablet,extended 500 mg PO BID 30 day s #60 tabs 12/15/24 release,12 hr atorvastatin 40 mg tablet 40 mg PO DAILY High choleste rol 12/30/24 #90 tabs valsartan 320 mg tablet 320 mg PO DAILY #30 tabs Allergies Allergy/AdvReac Type Severity Reaction Status Date / Time No Known Allergies Allergy Verified 12/30/24 11:45 [facility] <Liliane Olsen APRN - Last Filed: 01/18/25 20:59> [facility] Disclaimer: The information contained in this section may have been updated after the patient was seen, as this information can be updated by other users. Medical History SVT (supraventricular tachycardia) Paroxysmal atrial fibrillation Dizziness Abnormality on patient-activated cardiac event recorder Atrial fibrillation by electrocardiogram Stable angina Dyspnea on exertion Angina, class II Cardiomyopathy Abnormal echocardiogram Atypical angina Abnormal cardiovascular stress test HLD (hyperlipidemia) Abnormal EKG Tobacco dependence syndrome Dyspnea Gastroesophageal reflux disease Chest pain Left arm numbness Surgical History History of cardiac cath Status post fusion of wrist Family History Other Family history of diabetes mellitus type II Family history of myocardial infarction Social History Smoking Status: Current every day smoker tobacco type: cigarettes packs per day: 1 second hand exposure: No alcohol intake: never substance use type: denies use current occupational status: disabled Travel in the last 8 weeks?: Inside the [place] household members: spouse housing: house current occupational exposures/hazards: No caffeine: Yes Have you lived/traveled outside [place] in past 30 days?: No Contact w/someone who lives/traveled outside [place] past 30 days?: No Exposure to someone with infectious disease in past 14 days?: No Do you have a fever (greater than 100.4 F or 38 C)?: No Have you tested positive for COVID-19?: No Exposed to someone with COVID-19 in past 14 days?: No Do you have a sore throat?: No Do you have a cough?: No Do you have any weakness?: No Do you have any diarrhea?: No Are you experiencing any unusual bleeding?: No Do you have any muscle aches/pain?: No Do you have any abdominal pain?: No Are you experiencing loss of taste or smell?: No Other Medical History Have you received the Flu Vaccine for this season: No Have you received the Pneumonia Vaccine: No <Liliane Olsen APRN - Last Filed: 01/18/25 20:59> ROS Obtained: Yes Systems reviewed as appropriate & no additional complaints except as documented Physical Exam <Liliane Olsen APRN - Last Filed: 01/18/25 20:59> General General appearance: alert Head Head exam: atraumatic Eye Eye exam: Present PERRL and EOMI Neck Neck exam: Present normal inspection and full ROM Respiratory Respiratory exam: Present normal lung sounds bilaterally Cardiovascular Cardiovascular exam: Present regular rate Extremities Exam Extremities exam: Present full ROM Back Exam Back exam: Present full ROM Neurological Exam Neurological exam: Present alert and oriented X3; Absent motor sensory deficit Skin Skin exam: Present warm and dry Medical Decision Making <RILEY Mcnamara Last Filed: 01/18/25 20:59> Medical Records Screening: Per USPSTF and CDC recommendations, given the prevalence of disease in our region, it is our hospital?s policy to screen for HIV and viral Hepatitis for all patients aged 18 and over and those with ongoing risk factors. Paul Inquiry Pt receiving controlled substance: No Vital Signs: 01/18/25 19:41 01/18/25 20:19 Temperature 98.2 F 98 F Temperature Source Oral Pulse Rate 58 L Pulse Rate [Right Radial] 64 Respiratory Rate 16 14 Blood Pressure 162/83 H Blood Pressure [Right Arm] 193/103 H Blood Pressure Mean [Right Arm] 133 Blood Pressure Source [Right Arm] Automatic Cuff Blood Pressure Position Sitting Blood Pressure Position [Right Arm] Sitting 02 Sat by Pulse Oximetry 100 Oxygen Delivery Method Room Air Room Air Medical Decision Narrative: In summary, patient is a 49-year-old male with significant PMH of hypertension, history of SVT, history of paroxysmal A-fib, CAD, cardiomyopathy, HLD who presents to the ED for concern of elevated blood pressure. Patient states that he had a new blood pressure machine at home, took his blood pressure which was systolic in the 180s tonight. Patient states he took his blood pressure 3 times, last time was a systolic of 160 which he reports is normal for him. Patient has not missed any blood pressure medication. He denies any symptoms. He denies fever, chills, body aches, headache, visual disturbance, posterior neck pain, chest pain, shortness of breath, abdominal pain, nausea, vomiting, dysuria. Patient states he follows closely with cardiology. He states that he feels the new machine had incorrect readings the first few times. Patient states that he was initially concerned and wanted his blood pressure rechecked. I had a long, interactive discussion with patient and spouse regarding asymptomatic hypertension. I did offer a full cardiac workup to which patient and spouse declined, they stated they do not feel it is necessary, we discussed risk versus benefits, ultimately the patient and spouse that they retired I would like to go home tonight. I discussed that if anything changes they will need to return to the ED immediately. We discussed need for follow-up with PCP and to keep the follow-up appointment with cardiology in approximately 10 days. Patient was hemodynamically stable other than his elevated blood pressure and ambulatory without difficulty from the ED. <Anatoliy Elizalde MD - Last Filed: 01/18/25 20:02> Vital Signs: 01/18/25 19:41 01/18/25 20:19 Temperature 98.2 F 98 F Temperature Source Oral Pulse Rate 58 L Pulse Rate [Right Radial] 64 Respiratory Rate 16 14 Blood Pressure 162/83 H Blood Pressure [Right Arm] 193/103 H Blood Pressure Mean [Right Arm] 133 Blood Pressure Source [Right Arm] Automatic Cuff Blood Pressure Position Sitting Blood Pressure Position [Right Arm] Sitting 02 Sat by Pulse Oximetry 100 Oxygen Delivery Method Room Air Room Air ECG Data Tracing #1: Independently interpreted by me rate is 54, rhythm is regular, axis is normal, no ST elevation in anatomical contiguous leads, QTc 422 Critical Care <Liliane Olsen, SOOT BLOWER - Last Filed: 01/18/25 20:59> Critical Care Time Critical Care Time: No
[2025-01-18 20:19] VITALS: BP 162/83; PULSE 58; RESP 14; TEMP 36.6; O2SAT 98
== END 2025-01-18 20:20 | disposition home or self-care (01) ==
PROVIDERS: Emergency Provider Emergency Medicine; PCP Nurse Practitioner Family
DX: I10 Essential (primary) hypertension (principal); I48.91 Unspecified atrial fibrillation; I47.10 Supraventricular tachycardia, unspecified; E78.5 Hyperlipidemia, unspecified; F17.210 Nicotine dependence, cigarettes, uncomplicated
CPT/HCPCS: 93005; 99282; 99283